=== PATIENT | female | born 1970 | race Caucasian/White ===

== ENCOUNTER → 2019-02-24 | Outpatient (CLI) | payer BC, OTHER ==
[~2019-02-24] VITALS: Ht 152.4 cm; Wt 94.8 kg
[~2019-02-24] MED LIST: ASA81BEC PO; CRESTOR40 MG PO; LASIX 40 MG TAB40 MG PO; LOSARTAN POTASS50 MG PO; NEURONTIN300 MG PO; NOVOLOG100 UNIT/1 SUBQ; TIZANIDINE HCL2 M1 PO; TOUJEO MAX300 UNIT/1 SUBQ; TRULICITY0.75 MG/0. SUBQ
--- NOTE | ~2019-02-24 | HPC ---
[facility] [address] [place] [address] PAIN MANAGEMENT CONSULTATION Name: JUAN GRANT Room #: REG ELLIOT Morales#: [id number] Admission: 02/24/19 Attend Phys: Bob Mart MD Discharge: Date of : 70 Report #: [id number] THIS REPORT FOR: //name// CC: Carl Alejandro The patient is a 48-year-old who was seen today at the request of [facility]. The consult was initiated by JODI Delacruz. The patient has 2 primary pain generators, one is in her neck and the other is in her low back. She is no stranger to pain clinics. She was seen originally at the pain clinic at [facility]. They only do injections there. She got several. She received 3 epidurals with no relief, but prior to that, they had also performed medial branch nerve blocks followed by extensive radiofrequency ablation. After receiving little improvement from them she was seen by JULIO C[facility]SAR Pain. Dr. Dori Bates performed a couple of shots as well, but there was no relief from those injections either. Those were for her low back. She then was placed on her medication management program and saw the nurse every 2 months. Medications were gradually weaned and she was allowed to take hydrocodone 5/325, 1-1/2 tablets a day. The prescription drug monitoring program shows that her last prescription written by Dr. Bates was on 11/05/2018 for 45 hydrocodone 5/325 tablets. She filled it on 11/30/2018. There have been no prescriptions filled since that time, she has gradually weaned herself off of opioids in total. She said that taking some small amounts of pain medicine did not provide relief at all. Today, her pain is a 5-6, on an average day it is an 8 on a severe day. She says the pain is mostly in her upper neck, radiating down her right arm and into her right wrist. This is the pain that has not responded to injections. Pain is worse when she is lying on her arm and she has used some ice to benefit. Because of her chronic pain and her history of heart disease, which will be described below, she is no longer works and is unable to work around the house. She currently is taking medications only as a way of managing her pain. She is not currently doing active physical therapy, but has seen a physical therapist in the past, who basically provided tactile therapy and massage. MEDICATIONS: Toujeo, NovoLog, Trulicity, Lasix, Losartan, rosuvastatin, aspirin. ALLERGIES: None. PAST MEDICAL HISTORY: Remarkable for prior myocardial infarctions, open heart surgery for bypass in 2011. She tearfully tells me that 2 parts of her heart are "." She follows with Dr. Cartagena. She describes congestive heart failure with an EF of 35%. She is not on medication that I can see right now and does [address] [address] PAIN MANAGEMENT CONSULTATION Name: JUAN GRANT Room #: REG ELLIOT Morales#: [id number] Admission: 02/24/19 Attend Phys: Bob Mart MD Discharge: Date of : 70 Report #: [id number] not have edema. She has a history of diabetes, hypertension and arthritis. SOCIAL HISTORY: She has not worked since 2011 and is receiving disability income. She is . She has a 10-year-old and lives in [place], [place] now near the [facility]. Impact pain scores are high, particularly for mood 10/30, normal work 11/30, sleep /10 and enjoyment of life /. Her total functional score is 52/70 suggesting dramatic impact of her pain on her psychosocial activities. REVIEW OF SYSTEMS: Positive for decreased appetite, weakness, shortness of breath, dyspnea on exertion, loss of appetite, numbness and tingling into the right arm, memory loss, confusion. PHYSICAL EXAMINATION: GENERAL: She cried 2-3 times during her visit while I was taking her history. VITAL SIGNS: Blood pressure is 178/108, heart rate 110, respirations 18, O2 sat 97. She is 5 feet tall, 209 pounds. Her BMI is 40.8. She moves independently from sitting to standing position. Her gait is antalgic. HEENT: Normal. Pupils are equal, round, react to light. EOMs are intact. Mucous membranes are moist. NECK: Range of motion reveals pain in the neck with neck extension. She has pretty good range of motion in flexion, rotation and lateral tilt. Pain radiates into her right arm with neck extension. CHEST: Clear. CARDIAC: Rhythm is rapid with a slight murmur appreciated at the left sternal border. ABDOMEN: Obese. MUSCULOSKELETAL: Examination of the low back reveals tenderness across the lumbosacral segment. Bilateral straight leg raising discomfort. There is no peripheral edema. Pulses are full. Deep tendon reflexes are 2+ knees and ankles. Sensation is normal. X-RAYS: None. IMPRESSION: 1. Chronic intractable pain. She has neck pain with cervical radicular symptoms. This has been poorly responsive to prior injections. 2. Low back pain with radiculopathy. 3. Depression. She cried throughout my visit today. She is relatively pessimistic and very poorly functional. 4. Insomnia. 5. History of coronary artery disease, status post coronary artery bypass graft in 2011. 6. Disability syndrome. [facility] [address] [place] [address] PAIN MANAGEMENT CONSULTATION Name: JUAN GRANT FRANSISCO Room #: REG CLKarina Olga.#: [id number] Admission: 02/24/19 Attend Phys: Bob Mart MD Discharge: Date of : 70 Report #: [id number] RECOMMENDATIONS: Supportive of her tapering off of her opioids at this time. I have recommended Cymbalta, which may be helpful for both depression and pain. I have given her 30 mg tablets and 30 total tablets with 2 refills. We will see her back in the pain clinic in 3 months. I would not be against trying a cervical epidural if we had an MRI to review. This might be helpful for at least one component of her pain in the cervical radicular pain. Total time spent 45 minutes. By: [id number] Bob Mart MD /nt
[2019-02-24 13:40] VITALS: BP 178/108
--- NOTE | 2019-02-24 13:48 | NUR ---
Pain Clinic Assessment: 1. History of Osteoarthritis: NECK History of Rheumatoid Arthritis: Not Applicable 2. Height: 5 ft. 0 in. 152.4 cm. Weight: 209.0 lb. 66 oz. 94.802 kg. Patient's BMI: 40.8 3. Vital Signs: BP: 178/108 Pulse: 110 Resp: 18 Temp: 02 Sat: 97 ECG Mon: 4. Pain Intensity: 7 5. Fall Risk: Dizziness: N Needs help standing or walking: N Fallen in the last 3 months: N Fall risk comments: 6. Patient on Blood Thinner: None 7. History of Hypertension: Y 8. Opioid Therapy greater than 6 weeks: N Opiate Contract Signed: 9. Risk Assessment Tool Provided: LOW-1 10. Functional Assessment Tool: / 11. Recreational Drug Use: Never Drug Type: Tobacco Use: Former Smoker Tobacco Type: Amount or Packs/day: How Many Years: Alcohol Use: No Frequency: Quant:
== END ==
LOC: PAIN 06:53
DX: M54.16 Radiculopathy, lumbar region (principal); F32.9 Major depressive disorder, single episode, unspecified; G47.00 Insomnia, unspecified; I25.10 Atherosclerotic heart disease of native coronary artery without angina pectoris; I25.2 Old myocardial infarction; Z79.4 Long term (current) use of insulin; Z79.899 Other long term (current) drug therapy

== ENCOUNTER → 2019-04-28 | Outpatient (CLI) | payer BC, OTHER ==
[~2019-04-28] VITALS: Ht 152.4 cm; Wt 94.8 kg
--- NOTE | ~2019-04-28 | HPC ---
[facility] [place] [address] PAIN MANAGEMENT CONSULTATION Name: JUAN GRANT Room #: REG ELLIOT Espinoza.#: [id number] Admission: 04/28/19 Attend Phys: Bob Mart MD Discharge: Date of : 70 Report #: [id number] THIS REPORT FOR: //name// CC: Carl Aldridge DO Bob Mart DATE OF SERVICE: 04/28/2019 SUBJECTIVE: The patient is here today with her . She tells me a scary story about a recent procedure. Apparently, she went to the hospital on 04/17/2019 because she was feeling nauseated. In the Emergency Room, somehow one thing led to another and they noticed a cyst on the back of her neck. She had been complaining of pain in her neck previously. Apparently, she was taken to the operating room or to a procedure room for resection of this cystic mass. She was placed in the prone position and well under some form of anesthesia, arrested twice. CPR was performed. She was intubated and taken to the Intensive Care Unit where she remained for a couple of nights. She was then extubated, stabilized and discharged from the hospital on 04/23/2019. She has a history of coronary artery disease and congestive heart failure. At her last visit, I suggested Cymbalta 30 mg once daily. She cried throughout her first visit in my clinic and admitted to depression as well as chronic pain. She apparently discontinued it because she said she had no appetite. I did check her weight since she has not changed weight at all from the first visit on 02/24/2019 to today. Her biggest complaint today is of open wounds, which are being treated by wound management. It seems to me the story she has told me about the arrest during anesthesia, they may have not completed the procedure. Typically a resection of the cyst would include undermining of skin and closing the wound. She is now being packed and allowed to heal with intention from the outside. Again, I do not have her outside records. PHYSICAL EXAMINATION: Blood pressure 133/80, heart rate 89, respirations 16. Her affect is improved over her initial visit. She did not cry throughout her visit. Pain intensity was 4/10. Examination of the neck reveals open wounds, which are packed. The dressings are filthy and coming off, so we redressed the wound in our clinic. The neck is tender. She has diffuse myofascial pains in her right shoulder, right arm, but is not radicular and does not radiate. IMPRESSION: 1. Chronic cervicalgia. 2. Status post cervical superficial cystectomy with cardiac arrest during the procedure. [address] [address] PAIN MANAGEMENT CONSULTATION Name: JUAN GRANT FRANSISCO Room #: REG ELLIOT Morales#: [id number] Admission: 04/28/19 Attend Phys: Bob Mart MD Discharge: Date of : 70 Report #: [id number] 3. Insulin-dependent diabetic. 4. History of coronary artery disease, status post bypass graft in 2012 with congestive heart failure. RECOMMENDATIONS: Continue on Tylenol at this time. No injections are indicated while she has open wounds. Her cervical radicular symptoms have abated. I would not perform a cervical epidural injection on this patient, especially with her history of cardiac arrest for a simple procedure. By: [id number] Bob Mart MD /nt
[2019-04-28 11:28] VITALS: BP 133/80
--- NOTE | 2019-04-28 11:36 | NUR ---
Pain Clinic Assessment: 1. History of Osteoarthritis: NECK History of Rheumatoid Arthritis: Not Applicable 2. Height: 5 ft. 0 in. 152.4 cm. Weight: 209.0 lb. oz. 94.802 kg. Patient's BMI: 40.8 3. Vital Signs: BP: 133/80 Pulse: 89 Resp: 16 Temp: 02 Sat: 100 ECG Mon: 4. Pain Intensity: 4 5. Fall Risk: Dizziness: N Needs help standing or walking: N Fallen in the last 3 months: N Fall risk comments: 6. Patient on Blood Thinner: None 7. History of Hypertension: Y 8. Opioid Therapy greater than 6 weeks: N Opiate Contract Signed: 9. Risk Assessment Tool Provided: LOW-1 10. Functional Assessment Tool: / 11. Recreational Drug Use: Never Drug Type: Tobacco Use: Former Smoker Tobacco Type: Amount or Packs/day: How Many Years: Alcohol Use: No Frequency: Quant:
== END ==
LOC: PAIN 06:54
DX: M54.2 Cervicalgia (principal); E11.9 Type 2 diabetes mellitus without complications; I25.10 Atherosclerotic heart disease of native coronary artery without angina pectoris

== ENCOUNTER → 2019-06-16 | Outpatient (CLI) | payer BC, OTHER | LOC: SJCVC 09:12 | DX: I25.10 Atherosclerotic heart disease of native coronary artery without angina pectoris (principal) ==

== ENCOUNTER 2019-08-23 11:55 | Emergency (ER) | payer OTHER, BC ==
[~2019-08-23] VITALS: Ht 152.4 cm; Wt 85.7 kg
[2019-08-23 12:00] VITALS: BP 150/92
[2019-08-23] MEDS ORDERED: CYCLOBENZAPRINE5 MG PO ×2 (12:31→12:44)
[2019-08-23] MEDS ORDERED: NORCO 10-325 T1 EACH PO ×2 (12:31→12:44)
== END 2019-08-23 12:45 | disposition home or self-care (01) ==
LOC: ER 11:55
DX: M54.2 Cervicalgia (principal); M54.9 Dorsalgia, unspecified; M79.18 Myalgia, other site; F17.210 Nicotine dependence, cigarettes, uncomplicated; Z79.899 Other long term (current) drug therapy; Z79.82 Long term (current) use of aspirin; Z90.710 Acquired absence of both cervix and uterus; Z98.890 Other specified postprocedural states

== ENCOUNTER 2019-09-10 19:23 | Emergency (ER) | payer OTHER, BC ==
[~2019-09-10] VITALS: Ht 152.4 cm; Wt 86.2 kg
[~2019-09-10 19:23] MED LIST changes: +CYCLOBENZAPRINE5 MG PO; +NORCO 10-325 T1 EACH PO
[2019-09-10 20:40] LABS: ABSOLUTE NEUTROPHILS 4.9 thou/uL (1.4-8.2); BASOPHILS 0.5 % (0.0-2.0); EOSINOPHILS 0.6 % (0.0-3.0); HEMATOCRIT 39.7 % (37.0-47.0); HEMOGLOBIN 12.9 gm/dL (12.0-15.0); LYMPHOCYTES 16.4 % (24.0-44.0); MCH 29.4 pg (26.0-34.0); MCHC 32.6 g/dL (28.0-37.0); MONOCYTES 5.4 % (1.0-8.0); PLATELET COUNT 214 thou/uL (150-400); POLYS 77.1 % (36.0-66.0); RBC 4.41 mil/uL (4.20-5.00); RDW 16.3 % (10.5-14.5); WBC 6.3 thou/uL (4.0-11.0)
[2019-09-10 20:45] LABS: ANION GAP 8 mmol/L (7-16); BUN 11 mg/dL (7-18); CALCIUM 8.7 mg/dL (8.5-10.1); CHLORIDE 100 mmol/L (98-107); CO2 31 mmol/L (21-32); CREATININE 1.1 mg/dL (0.6-1.0); GLUCOSE 224 mg/dL (74-106); POTASSIUM 3.3 mmol/L (3.5-5.1); SODIUM 139 mmol/L (136-145)
[2019-09-10 20:53] LABS: MAGNESIUM 1.7 mg/dL (1.8-2.4); TROPONIN-I <0.06 ng/mL (<0.06)
[2019-09-10 21:44] VITALS: BP 133/55
--- NOTE | 2019-09-11 08:12 | EKG ---
[facility] [place] [address] ELECTROCARDIOGRAM REPORT Name: JUAN GRANT Room #: DEP [facility]..#: [id number] Admission: 09/10/19 Attend Phys: Discharge: 09/10/19 Date of : 70 Report #: [id number] THIS REPORT FOR: cc: Carl Aldridge James A. 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
== END 2019-09-10 21:47 | disposition home or self-care (01) ==
LOC: ER 19:23
PROVIDERS: Emergency Medicine
DX: R06.00 Dyspnea, unspecified (principal); R06.02 Shortness of breath; E11.9 Type 2 diabetes mellitus without complications; I50.9 Heart failure, unspecified; Z95.1 Presence of aortocoronary bypass graft; Z79.4 Long term (current) use of insulin; Z79.82 Long term (current) use of aspirin; Z79.899 Other long term (current) drug therapy; Z87.891 Personal history of nicotine dependence; Z90.710 Acquired absence of both cervix and uterus; Z98.890 Other specified postprocedural states

== ENCOUNTER → 2019-09-23 | Outpatient (CLI) | payer OTHER, BC ==
[~2019-09-23] MED LIST changes: +CARVEDILOL12.5 MG PO; +CARVEDILOL25 MG PO; +CEFACLOR250 MG PO; +COZAAR 25 MG TA25 M1 PO; +DEMADEX20 MG PO; +DOXYCYCLINE HYC50 MG PO; +HUMULIN R100 UNIT/1 SUBQ; +HYDROCODON-ACE1 EAC5 PO; +JARDIANCE10 MG PO; +KLOR-CON 1010 MEQ PO; +NEURONTIN 300M300 M2 PO; +NITROGLYCERIN0.4 MG SUBLING; +NOVOLIN R100 UNIT/2 SUBQ; +SPIRONOLACTONE25 M1 PO; +TIZANIDINE HCL 22 M1 PO; +TIZANIDINE HCL4 M1 PO; +TOUJEO SOL300 UNIT/1 SUBQ; +TRAMADOL 50 MG50 MG PO; +TRAZODONE HCL50 MG PO; +ULTRAM 50MG TAB50 MG PO; +VICTOZA0.6 MG/0.1 SUBQ; +VITAMIN D3250 MC2 PO; +ZANAFLEX2 M1 PO; +ZETIA10 MG PO
== END ==
LOC: SJCVCIMAG 08:55
PROVIDERS: ATTEND Internal Medicine Cardiovascular Disease
DX: R94.31 Abnormal electrocardiogram [ECG] [EKG] (principal); I25.10 Atherosclerotic heart disease of native coronary artery without angina pectoris; E11.9 Type 2 diabetes mellitus without complications; I42.9 Cardiomyopathy, unspecified; I11.0 Hypertensive heart disease with heart failure; I50.9 Heart failure, unspecified; E66.9 Obesity, unspecified; G89.29 Other chronic pain; Z95.1 Presence of aortocoronary bypass graft; Z90.710 Acquired absence of both cervix and uterus; Z79.899 Other long term (current) drug therapy; Z87.891 Personal history of nicotine dependence

== ENCOUNTER 2019-09-25 12:03 | Inpatient (IN) | payer OTHER, BC | END 2019-09-28 12:49 | disposition home or self-care (01) | DRG 637 | LOC: ER 12:03 → EROBS 13:46 → ICU 19:45 → 2N 09-26 22:28 | PROVIDERS: ADMIT Internal Medicine | DX: E11.65 Type 2 diabetes mellitus with hyperglycemia (principal); J96.20 Acute and chronic respiratory failure, unspecified whether with hypoxia or hypercapnia; I50.23 Acute on chronic systolic (congestive) heart failure; I42.9 Cardiomyopathy, unspecified; R79.89 Other specified abnormal findings of blood chemistry; I95.9 Hypotension, unspecified; I34.0 Nonrheumatic mitral (valve) insufficiency; I25.119 Atherosclerotic heart disease of native coronary artery with unspecified angina pectoris; I11.0 Hypertensive heart disease with heart failure; E78.5 Hyperlipidemia, unspecified; E83.51 Hypocalcemia; M54.9 Dorsalgia, unspecified; G89.29 Other chronic pain; I25.10 Atherosclerotic heart disease of native coronary artery without angina pectoris; E78.00 Pure hypercholesterolemia, unspecified; E87.6 Hypokalemia; E83.42 Hypomagnesemia; Z90.710 Acquired absence of both cervix and uterus; Z95.1 Presence of aortocoronary bypass graft; Z98.1 Arthrodesis status; Z87.891 Personal history of nicotine dependence; Z79.82 Long term (current) use of aspirin; Z79.4 Long term (current) use of insulin; Z79.899 Other long term (current) drug therapy ==

== ENCOUNTER 2019-10-04 23:55 | Inpatient (IN) | payer OTHER, BC ==
[~2019-10-04] VITALS: Ht 152.4 cm; Wt 88.5 kg
[~2019-10-04 23:55] MED LIST changes: -CARVEDILOL25 MG PO; -CEFACLOR250 MG PO; -DEMADEX20 MG PO; -DOXYCYCLINE HYC50 MG PO; -HUMULIN R100 UNIT/1 SUBQ; -HYDROCODON-ACE1 EAC5 PO; -KLOR-CON 1010 MEQ PO; -NEURONTIN 300M300 M2 PO; -NITROGLYCERIN0.4 MG SUBLING; -SPIRONOLACTONE25 M1 PO; -TIZANIDINE HCL 22 M1 PO; -TRAZODONE HCL50 MG PO; -ULTRAM 50MG TAB50 MG PO; -VITAMIN D3250 MC2 PO; -ZANAFLEX2 M1 PO; -ZETIA10 MG PO
[2019-10-05] VITALS (9 sets, daily range): BP systolic 102–143; BP diastolic 47–97
[2019-10-05 00:42] LABS: ABSOLUTE NEUTROPHILS 12.7 thou/uL (1.4-8.2); BASOPHILS 0.7 % (0.0-2.0); HEMATOCRIT 34.5 % (37.0-47.0); HEMOGLOBIN 11.4 gm/dL (12.0-15.0); LYMPHOCYTES 3.2 % (24.0-44.0); MCHC 33.1 g/dL (28.0-37.0); MCV 87.5 fL (80.0-100.0); MONOCYTES 8.3 % (1.0-8.0); PLATELET COUNT 304 thou/uL (150-400); POLYS 87.8 % (36.0-66.0); RBC 3.95 mil/uL (4.20-5.00); RDW 15.9 % (10.5-14.5); WBC 14.5 thou/uL (4.0-11.0)
[2019-10-05 00:48] LABS: ANION GAP 11 mmol/L (7-16); BUN 17 mg/dL (7-18); CALCIUM 8.8 mg/dL (8.5-10.1); CHLORIDE 92 mmol/L (98-107); CO2 26 mmol/L (21-32); CREATININE 1.3 mg/dL (0.6-1.0); GLUCOSE 296 mg/dL (74-106); POTASSIUM 4.1 mmol/L (3.5-5.1); SODIUM 129 mmol/L (136-145)
[2019-10-05 00:58] LABS: ALBUMIN 2.7 g/dL (3.4-5.0); SGOT 33 U/L (15-37); SGPT 24 U/L (30-65); TOTAL BILIRUBIN 1.6 mg/dL (0.2-1.0); TOTAL PROTEIN 7.5 g/dL (6.4-8.2); TROPONIN-I <0.06 ng/mL (<0.06)
[2019-10-05 03:27] LABS: URINE BILIRUBIN 1+ (Negative); URINE BLOOD 2+ (Negative); URINE CLARITY CLEAR; URINE COLOR YELLOW; URINE GLUCOSE-RANDOM* 2+ (Negative); URINE KETONES 1+ (Negative); URINE LEUKOCYTES-REFLEX NEGATIVE (Negative); URINE NITRITE-REFLEX NEGATIVE (Negative); URINE PROTEIN (DIPSTICK) 3+ (Negative); URINE SPECIFIC GRAVITY >= 1.030 (1.005-1.035)
[2019-10-05 03:28] LABS: ICTOTEST (BILI CONFIRMATORY) Positive (Negative)
[2019-10-05 03:29] LABS: AMORPHOUS URATES Many /LPF (None Seen); BACTERIA-REFLEX 1-9 Few /HPF (None Seen); FINE GRANULAR CASTS 4-10 Moderate /LPF (None Seen); HYALINE CASTS 0-3 Few /LPF (None Seen); MUCUS 4-6 Moderate strn/LPF (None Seen); SQUAMOUS 0-3 Few /LPF (0-3); URINE RBC 3-10 Few /HPF (0-2); URINE WBC-REFLEX None Seen /HPF (0-5)
[2019-10-05 03:30] LABS: URIC ACID CRYSTALS 0-3 Few /LPF (None Seen)
--- NOTE | 2019-10-05 07:07 | NUR ---
PT ADMITTED FROM ER TO RM 352. PT IS ALERT AND ORIENTEDX4 WITH PERIODS OF FORGETFULNESS. VSS. STILL RUNNING TEMP. HRR. LUNGS ARE DIMINISHED. LABORED WITH MOVEMENT. SATS WNL PRESENTLY.INSTRUCTED ON FALL PRECAUTIONS, BED ALARM IS ON. ORIENTED PT TO ROOM. C/O BACK PAIN . REFUSED TRAMADOL.
--- NOTE | 2019-10-05 08:48 | EKG ---
[facility] [place] [address] ELECTROCARDIOGRAM REPORT Name: LAVERNE GRANTJORIE FRANSISCO Room #: 352-P ADM IN M.R.#: [id number] Admission: 10/05/19 Attend Phys: Kaity Foley MD Discharge: Date of : 70 Report #: [id number] THIS REPORT FOR: cc: Carl Aldridge James A. 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 : 1970 Requested By: Dagoberto Edmondson Order Number: [id number] MD: Darnell Cartagena Measurements Intervals [place] Rate: 106 P: 64 ID: [id number] QRS: 28 QRSD: 114 T: 224 QT: 322 QTc: 428 Interpretive Statements Sinus tachycardia Consider right atrial enlargement LVH with secondary repolarization abnormality Nonspecific ST segment abnormalities Compared to ECG 09/25/2019 12:54:15 Sinus rhythm no longer present Possible ischemia no longer present Electronically Signed On 10-05-2019 8:47:22 CDT by Darnell Cartagena [email or web address] <ELECTRONICALLY SIGNED> By: Darnell Cartagena MD 10/05/19 0847 [id number] Darnell Cartagena MD /EPI
--- NOTE | 2019-10-05 18:33 | NUR ---
ASSUMED PATIENT CARE AT 0700. A/O X4. RESTLESS. VSS. SOB WITH EXERTION. COVID NEHATIVE. SLOWLY TOWARDS POC GOALS.
[2019-10-06] VITALS (8 sets, daily range): BP systolic 78–95; BP diastolic 45–59
--- NOTE | 2019-10-06 00:29 | NUR ---
Pt progressing slowly towards d/c goals. She continues to run temperatures Treating with abx and tylenol prn. Pt stated she feels a little better today. She was confused and restless at start of shift. She kept wanting to dangle at side of bed but set off bed alarm several times. Reeducated about fall precautions. Bed alarm is on. Medicated with tylenol for temp and tizanidine for muscle spasm pain. Pt is sleeping presently. Will continue to monitor pt for changes.
--- NOTE | 2019-10-06 04:47 | NUR ---
NOTIFIED ЮЛИЯ QUINTERO ELECTRICIAN CHIEF OF PT'S BP 91/48, 92/51. TEMP 103. TYKLENOL GIVEN. PT ON ABX. ELECTRICIAN CHIEF WILL REVIEW PT'S MEDS. NO ORDERS GIVEN FOR NOW. PT VOIDED A60 ML DARK CLEAR TEA COLORED URINE.
[2019-10-06 05:45] LABS: ABSOLUTE NEUTROPHILS 9.5 thou/uL (1.4-8.2); BASOPHILS 0.5 % (0.0-2.0); HEMATOCRIT 27.3 % (37.0-47.0); LYMPHOCYTES 3.3 % (24.0-44.0); MCH 29.4 pg (26.0-34.0); MCHC 33.2 g/dL (28.0-37.0); MCV 88.3 fL (80.0-100.0); MONOCYTES 6.9 % (1.0-8.0); POLYS 89.3 % (36.0-66.0); RBC 3.09 mil/uL (4.20-5.00); RDW 16.2 % (10.5-14.5); WBC 10.6 thou/uL (4.0-11.0)
[2019-10-06 05:50] LABS: HEMOGLOBIN 9.1 gm/dL (12.0-15.0); PLATELET COUNT 208 thou/uL (150-400)
[2019-10-06 05:53] LABS: CALCIUM 8.2 mg/dL (8.5-10.1); CREATININE 1.7 mg/dL (0.6-1.0); MAGNESIUM 1.7 mg/dL (1.8-2.4); POTASSIUM 3.8 mmol/L (3.5-5.1)
--- NOTE | 2019-10-06 16:24 | NUR ---
ASSESSMENT:CM REVIEWED CHART AND SPOKE WITH PATIENT. PT WAS ADMITTED WITH SEPSIS. PT IS BEING RULE OUT FOR COVID AND HAS HAD TWO NEGATIVE RESULTS. PT REPORTS THE SHE LIVES IN A RANCH STYLE HOME WITH HER , CHILDREN, AND GRANDSON. PT REPORTS SHE HAS NO STEPS TO ENTER OR ONCE INSIDE. PT REPORTS BEING FULLY INDEPENDENT WITH ADLS AND AMBULATION. PT HAS HX OF DIABETES AND REPORTS HAVING INSULIN AND GLUCOMETER AT HOME. PT REPORTS SHE HAS NOT HAD HH OR BEEN TO A SNF IN THE PAST. PT REPORTS HER PCP IS DR. SHIN. CM DISCUSSED ROLE. PT DOES NOT ANTICIPATE HAVING ANY NEEDS. PT WAS JUST PLACED ON 2L OF OXYGEN AND DOES NOT HAVE OXYGEN AT HOME. CM WILL CONTINUE TO FOLLOW TO ASSIST NEEDED.
--- NOTE | 2019-10-06 18:32 | NUR ---
PT'S FIRST COVID WAS NEGATIVE FROM 10/05/19 TEST , BECAUSE PT HAS SOB AND FEVER, PT HAD SECOND COVID TEST AT 9AM, RESULT WAS NEGATIVE, RN HAS REPORTED RESULT TO AND ID ,PT STLL HAS FEVER AND SOB, SO WE CONTINUING ISOLATION AND KEEP EYE ON PT.
--- NOTE | 2019-10-06 18:37 | NUR ---
PT IS A&OX2 ( PERSON AND PLACE ), BUT PT IS FORGETFUL, RN HAS REPORT TO DR ABOUT PT'S SOB, FEVER AND ABNORMAL LAB RESULT , PT STARTS 02 2L/MIN/NC, NEW IV ABX , AND BRETHING TREATMENT, PT NEEDS HELP TO USE BSC , PT IS RELAXING NOW.
--- NOTE | 2019-10-06 23:11 | NUR ---
PT PROGRESSING SLOWLY TOWARDS D/C GOALS. PT IS MORE ALERT TONIGHT THAN YESTERDAY FAR ANSWERING QUESTIONS APPROPRIATELY. SHE IS LESS RESTLESS IN THE BED. TEMP 100. BP MODERATELY LOW . IV FLUIDS ARE OFF ORDERED. LUNGS SOUND MAILY CLEAR BUT SLIGHTLY DIMINISHED ON RLL. 3LNC 100%% SAT. RESP TX PER RT. C/O BACK PAIN 09/30. NOTIFIED APPLIANCE PARTS COUNTER CLERK ЮЛИЯ QUINTERO. HYDROCODONEGIVEN ORDERED SINCE IT WAS NOT TIME YET TO GIVE MUSCLE RELAXER OR TYLENOL. PT IS SLEEPING QUIETLY PRSENTLY. WILL CONTINUE TO MONITOR PT FOR CHANGES.
[2019-10-07] VITALS (10 sets, daily range): BP systolic 97–168; BP diastolic 53–80
[2019-10-07 05:47] LABS: ABSOLUTE NEUTROPHILS 7.8 thou/uL (1.4-8.2); BASOPHILS 0.3 % (0.0-2.0); EOSINOPHILS 0.4 % (0.0-3.0); HEMOGLOBIN 9.8 gm/dL (12.0-15.0); LYMPHOCYTES 5.5 % (24.0-44.0); MCH 28.7 pg (26.0-34.0); MCHC 32.6 g/dL (28.0-37.0); MCV 88.2 fL (80.0-100.0); MONOCYTES 6.3 % (1.0-8.0); PLATELET COUNT 222 thou/uL (150-400); POLYS 87.5 % (36.0-66.0); WBC 8.9 thou/uL (4.0-11.0)
[2019-10-07 05:56] LABS: CALCIUM 8.5 mg/dL (8.5-10.1); MAGNESIUM 2.6 mg/dL (1.8-2.4); POTASSIUM 3.9 mmol/L (3.5-5.1)
--- NOTE | 2019-10-07 06:34 | NUR ---
Pt is resting quietly after hydrocodone given for back pain and cough medicine given. Pt has had low grade temps tonight. Pt voided cloudy nina colored urine 350 out total for shift. SR with BBB on the monitor.
--- NOTE | 2019-10-07 10:19 | NUR ---
PT'S SECOND COVID WAS NEGATIVE FROM 09/05/19 TEST, WE CPNTINUE TO MONITOR , PT DOES NOT HAVE FEVER LAST NIGHT , PT'S COVID ISOLATION HAS DC PER ORDER.
--- NOTE | 2019-10-07 13:07 | NUR ---
SW reviewed chart and spoke with nursing and attending physician. Pt is progressing towards goals for discharge. Pt's second COVID-19 test is negative. Pt was febrile yesterday and is currently on IV abx and O2. Psych consulted due to AMS. Plan is for pt to discharge home when medically stable. Will need rest/exercise oximetry prior to discharge to determine if pt needs home O2. SW is following to assist as needed with discharge planning.
--- NOTE | 2019-10-07 14:49 | NUR ---
PT IS A&OX3, PT IS CONTINUING IV ABX, RN HAS REPORTED TO DR ABOUT PT'S ABNORMAL LAB RESULTS AND 700ML URINE IN 24HR, NEW ORDER ,PT STARTS NS @ 100ML/HR ( TOTAL 1000ML), PT IS ON O2 1L/MIN/NC, PT HAS SOB WITH ACTIVITES, PT'S VS ARE ARE STABLE , PT DOES NOT HAVE PAIN AND FEVER BY THIS TIME.
--- NOTE | 2019-10-07 19:25 | NUR ---
pt is off o2 and stays at room air, pt 's o2sat keeps at 94-95% at resting. RN has reported to next shift to monitor o2sat.
--- NOTE | 2019-10-08 00:06 | NUR ---
ASSESSED AT START OF SHIFT PT A&OX4 FOR THIS NURSE. DENIES N/V. CLEAR LUNG SOUNDS AND 02 95-96% ON ROOM AIR. TRAZADONE GIVEN FOR SLEEP PER PT REQUEST AND HYDROCODONE GIVENX1 FOR BACK PAIN. CALL LIGHT IN REACH AND WILL CONT WITH POC TILL EOS.
[2019-10-08 04:52] VITALS: BP 147/78
[2019-10-08 06:44] LABS: CALCIUM 8.5 mg/dL (8.5-10.1); CREATININE 1.2 mg/dL (0.6-1.0); POTASSIUM 3.3 mmol/L (3.5-5.1)
[2019-10-08 07:48] VITALS: BP 142/74
[2019-10-08] MEDS ORDERED: DOXYCYCLINE HYC50 MG PO (08:28)
[2019-10-08] MEDS ORDERED: CEFACLOR250 MG PO (08:30)
[2019-10-08 08:47] VITALS: BP 142/74
[2019-10-08] MEDS ORDERED: NORCO 10-325 T1 EACH PO (09:50)
[2019-10-08 10:21] VITALS: BP 142/74
--- NOTE | 2019-10-08 10:24 | NUR ---
DISCHARGE NOTE: CHIP reviewed chart and spoke with nursing and attending physician. Pt is medically stable for discharge home today. Pt is on room air. Pt to discharge home today. Pt's family to provide transportation home. No discharge needs identified at this time, but is available to assist should needs arise.
--- NOTE | 2019-10-17 15:17 | HC ---
[facility] [place] [address] CONSULTATION Name: JUAN GRANT FRANSISCO Room #: 352-P [facility] IN M.R.#: [id number] Admission: 10/05/19 Attend Phys: Rey Causey MD Discharge: 10/08/19 Date of : 70 Report #: [id number] THIS REPORT FOR: cc: Carl Aldridge James A. DO Al-Absi, Ahmed I. MD ~ CC: Rey Aldridge REASON FOR CONSULTATION: Elevated creatinine. REASON FOR PRESENTATION: Difficulty finding words. HISTORY OF PRESENT ILLNESS: A 49-year-old with history of coronary artery disease, cardiomyopathy with ejection fraction of around 35%. She is also known to have diabetes mellitus with uncontrolled blood sugar. She presented with confusion and inability to find her words. She was admitted for further evaluation and management. Blood pressure was on the low side when she presented and dropped to 90/48. She had some leukocytosis. Drop in her blood pressure has caused a rise in the creatinine with the creatinine peaking at 2.0; however, this had resolved and is down to 1.2. I was consulted to manage her acute kidney injury. From the renal perspective, she tells me that she is not aware of any previous kidney problems and she did have creatinine values anywhere from 0.8-1.0. She has been diabetic for over the last couple of years. She follows with Luis Carlos. Her most recent hemoglobin A1c was 11.9. PAST MEDICAL HISTORY: 1. Diabetes mellitus, uncontrolled. 2. Hypertension. 3. Coronary artery disease. 4. Hyperlipidemia. 5. Cardiomyopathy with ejection fractions of around 35%. PAST SURGICAL HISTORY: 1. CABG. 2. Mitral valve annuloplasty. 3. Basal cell carcinoma excision. 4. Hysterectomy. FAMILY HISTORY: Diabetes mellitus runs in the family. SOCIAL HISTORY: Former smoker. Denies drug or alcohol abuse. ALLERGIES: None. REVIEW OF SYSTEMS: GENERAL: No fever or chills. [facility] [address] [place] [address] CONSULTATION Name: LAVERNE GRANTJORIE [facility] Room #: [facility] IN .R.#: [id number] Admission: 10/05/19 Attend Phys: Rey Causey MD Discharge: 10/08/19 Date of : 70 Report #: [id number] CARDIOVASCULAR: No chest pain or palpitation. PULMONARY: Significant for shortness of breath. GASTROINTESTINAL: No nausea or vomiting. GENITOURINARY: No frequency, no urgency. MUSCULOSKELETAL: Occasional myalgias. NEUROLOGICAL: As per the history of present illness. MEDICATIONS: At home includes: 1. Carvedilol. 2. Losartan. 3. Aspirin. 4. Tramadol. 5. Victoza. 6. Jardiance. 7. Tramadol. 8. Tizanidine. PHYSICAL EXAMINATION: GENERAL: She is alert, oriented. VITAL SIGNS: Temperature 37.2, pulse rate 95, respiratory rate 16, blood pressure 147/78. HEAD AND NECK: No jugular venous distention. CHEST: No crackles. CARDIOVASCULAR: Regular with no rub detected. ABDOMEN: Soft, nontender with no hepatosplenomegaly. EXTREMITIES: Lower extremities, no edema. NEUROLOGIC: She is alert, oriented with no deficit. Cranial nerves are intact. Power and sensations are intact. LABORATORY DATA: On arrival showed a white blood cell count of 14.5, which is down to 8.9. Sodium is 130, potassium 3.3, BUN is 24, creatinine is 1.2. ASSESSMENT AND IMPRESSION: 1. Acute kidney injury due to hypotension. 2. Pneumonitis. 3. Hypotension. 4. Diabetes mellitus. 5. Hyponatremia. 6. Cardiomyopathy. PLAN: 1. Her acute kidney injury is well explained by the hypotension. This has resolved. She received appropriate amount of IV fluids. This has been discontinued. Continue to watch blood pressure. 2. Continue to watch urine output and electrolytes. [address] [address] CONSULTATION Name: JUAN GRANT [facility] Room #: 352-P [facility] IN M.R.#: [id number] Admission: 10/05/19 Attend Phys: Rey Causey MD Discharge: 10/08/19 Date of : 70 Report #: [id number] 3. Workup for her confusion and mental status changes as per the primary team. 4. Appropriate antibiotic therapy as per the ID team. <ELECTRONICALLY SIGNED> By: Amanda Mabry MD 10/17/19 1517 [id number] Amanda Mabry MD /grey
== END 2019-10-08 10:10 | disposition home or self-care (01) | DRG 871 ==
LOC: ER 23:55 → EROBS 10-05 03:52 → 3W 10-05 03:52 → EROBS 10-05 05:06 → 3W 10-05 05:18
PROVIDERS: Emergency Medicine; Internal Medicine Infectious Disease; Nurse Practitioner Family; ADMIT Hospitalist; ATTEND Hospitalist
PROC: 5A09357 Assistance with Respiratory Ventilation, Less than 24 Consecutive Hours, Continuous Positive Airway Pressure (ICD-10-PCS; principal; 2019-10-06)
DX: A41.9 Sepsis, unspecified organism (principal); J18.9 Pneumonia, unspecified organism; G92 Toxic encephalopathy; N17.9 Acute kidney failure, unspecified; I42.9 Cardiomyopathy, unspecified; E87.1 Hypo-osmolality and hyponatremia; E11.65 Type 2 diabetes mellitus with hyperglycemia; I50.9 Heart failure, unspecified; I25.10 Atherosclerotic heart disease of native coronary artery without angina pectoris; E78.5 Hyperlipidemia, unspecified; I95.9 Hypotension, unspecified; G89.29 Other chronic pain; M54.9 Dorsalgia, unspecified; I11.0 Hypertensive heart disease with heart failure; Z20.828 Contact with and (suspected) exposure to other viral communicable diseases; E83.42 Hypomagnesemia; R41.0 Disorientation, unspecified; E87.6 Hypokalemia; Z03.818 Encounter for observation for suspected exposure to other biological agents ruled out; Z90.710 Acquired absence of both cervix and uterus; Z95.1 Presence of aortocoronary bypass graft; Z87.891 Personal history of nicotine dependence; Z83.3 Family history of diabetes mellitus; Z82.49 Family history of ischemic heart disease and other diseases of the circulatory system; Z79.82 Long term (current) use of aspirin; Z79.899 Other long term (current) drug therapy
CPT/HCPCS: 10080; 10879

== ENCOUNTER → 2019-10-27 | Outpatient (CLI) | payer OTHER, BC ==
[~2019-10-27] MED LIST changes: +CEFACLOR250 MG PO; +DOXYCYCLINE HYC50 MG PO
== END ==
LOC: SJCVC 13:40
PROVIDERS: ATTEND Internal Medicine Cardiovascular Disease
DX: R94.31 Abnormal electrocardiogram [ECG] [EKG] (principal); I25.810 Atherosclerosis of coronary artery bypass graft(s) without angina pectoris; I10 Essential (primary) hypertension; E78.00 Pure hypercholesterolemia, unspecified; E11.9 Type 2 diabetes mellitus without complications; R60.9 Edema, unspecified; E78.5 Hyperlipidemia, unspecified; E66.9 Obesity, unspecified; Z95.1 Presence of aortocoronary bypass graft; Z82.49 Family history of ischemic heart disease and other diseases of the circulatory system; Z86.79 Personal history of other diseases of the circulatory system; Z79.82 Long term (current) use of aspirin; Z79.899 Other long term (current) drug therapy; Z87.891 Personal history of nicotine dependence

== ENCOUNTER → 2019-11-04 | Outpatient (CLI) | payer OTHER, BC | LOC: SJCVC 15:15 | DX: R94.31 Abnormal electrocardiogram [ECG] [EKG] (principal); I25.5 Ischemic cardiomyopathy; I25.10 Atherosclerotic heart disease of native coronary artery without angina pectoris; I10 Essential (primary) hypertension; E11.628 Type 2 diabetes mellitus with other skin complications; Z68.39 Body mass index [BMI] 39.0-39.9, adult; Z79.899 Other long term (current) drug therapy; Z87.891 Personal history of nicotine dependence ==

== ENCOUNTER → 2019-12-01 | Outpatient (CLI) | payer OTHER, BC ==
[~2019-12-01] VITALS: Ht 152.4 cm; Wt 88.3 kg
[~2019-12-01] MED LIST changes: +HUMULIN R100 UNIT/1 SUBQ; +HYDROCODON-ACE1 EAC5 PO
--- NOTE | ~2019-12-01 | HPC ---
[facility] [place] [address] PAIN MANAGEMENT CONSULTATION Name: JUAN GRANT FRANSISCO Room #: REG MANKarina Morales#: [id number] Admission: 12/01/19 Attend Phys: Bob Mart MD Discharge: Date of : 70 Report #: [id number] THIS REPORT FOR: cc: Jessica Bradley DNP, Mary E. DNP Morgan, Richard L. MD ~ CC: Jessica Mart DATE OF SERVICE: 12/01/2019 The patient is here today with chronic pain. She was in tears a couple of times during her visit because of her significant arthritic pain. Most of her pain is skeletal related to spondylosis. She has cervicalgia as well as some low back pain. I had seen her in the past and initiated Cymbalta. She has continued on it, but is not currently noticing significant pain relief benefits. She has taken nonsteroidal anti-inflammatory drugs in the past, but must be cautious. She is on an aspirin and has significant coronary artery disease, status post bypass surgery. She also has an mitral valve replacement. We discussed her chronic issues. She is treated for hypertension, cardiac arrhythmias and is reportedly scheduled to have an implant of a pacemaker defibrillator. She has been hospitalized more than once over the last 6 months for fluid overload and symptoms of congestive heart failure twice at [facility] and once at [facility]. After diuresis, she has returned home. I do not have her records, but that is what I have gleaned from her report. Her coronary artery disease dates back many years. In 2011, she underwent CABG x 2 and mitral valve replacement by Dr. Reza at [facility]. She continues to report some mitral regurgitation. Pain is generally around a 7/10. She has generalized arthralgias, but complains mostly of her neck and low back. She denies radicular symptoms. Daily activities include house cleaning and laundry. She has been staying at home and sheltering a place due to COVID concerns. Her health issues providing an extra urgency and desire to stay out of the public. She has used tramadol, provided 1-2 tablets a day by Dr. Aldridge but finds it not nearly as effective as hydrocodone 10/, which she has received at discharge from the hospital. She generally gets about 6 hours of pain relief. She is grateful for the relief and denies side effects, carefully safeguards her medications. She has completed an opioid risk tool as part of her assessment in our clinic and her score is 1, considered low risk for addiction. She has been able to obtain some [address] [address] PAIN MANAGEMENT CONSULTATION Name: JUAN GRATN FRANSISCO Room #: REG ELLIOT Morales#: [id number] Admission: 12/01/19 Attend Phys: Bob Mart MD Discharge: Date of : 70 Report #: [id number] hydrocodone intermittently for the last 10-15 years for severe pain episodes. She was last seen in my clinic in April of 2019. At that time, she had some open wounds. She was seeing wound management. She had recently had a cardiac arrest during that brief procedure at in March. PHYSICAL EXAMINATION: GENERAL: She is pleasant, mildly depressed. 5 feet tall, 194 pounds, BMI is 38.0. We talked about important aspects of weight control and management of chronic pain. VITAL SIGNS: Her blood pressure is 127/65, heart rate 80, respirations 14, O2 sat is 96. NECK: Demonstrates tenderness along the paravertebral muscles and pain with flexion, extension, rotation, jqkw-km-lict tilt. CHEST: Clear. CARDIAC: Rhythm regular today without murmur. MUSCULOSKELETAL: Examination of the low back reveals tenderness with pain in forward flexion, extension, rotation, vufl-pn-cost tilt. Straight leg raising is negative. IMPRESSION: 1. Chronic cervicalgia and low back pain, spondylitic. No evidence of neuropathy. There is likely a myofascial component to each of these. 2. History of coronary artery disease and mitral valve disease, status post coronary artery bypass graft x 2 and MVR in 2012 at [facility], Dr. Reza. 3. Recurring episodes now of congestive heart failure. 4. Hypertension. 5. Insulin-dependent diabetes. RECOMMENDATIONS: I think she has longstanding chronic pain and will likely continue to have some skeletal pain and spondylitic discomfort. We discussed the importance of exercise as a management tool. She will need to be cautious. Cardiac rehabilitation program would be ideal where she could do something that would help her from a cardiovascular standpoint as well as the musculoskeletal benefits and pain benefits. For now if she can walk in the logistics lead before the humidity is bad, a simple walking program will be of benefit. We discussed the benefits of this for 3 conditions -- her heart condition, her diabetes and her pain. In view of her chronic pain as any other chronic disorder something she will probably have to some degree indefinitely. We had a lengthy discussion today about opioids and the use of low dose opioids in the treatment of chronic pain. She does benefit from hydrocodone. I have recommended that she initiate hydrocodone 10/325 one tablet available to her as an as-needed medication twice a day. We discussed the fact that she will likely remain on this indefinitely. [address] [place] [address] PAIN MANAGEMENT CONSULTATION Name: JUAN GRANT FRANSISCO Room #: REG ELLIOT MMaximus.#: [id number] Admission: 12/01/19 Attend Phys: Bob Mart MD Discharge: Date of : 70 Report #: [id number] Dependence develops but this is not the same as addiction. Using medications for therapeutic purpose under the direction of the physician at proper doses carefully safeguarding them, I believe is an appropriate therapy. We discussed side effects including constipation. Cognitive side effects also should be monitored for. An opioid agreement will be signed in my clinic. I will see her back in [address] Bradley feels comfortable providing her with this low dose 20 morphine milligram equivalents of hydrocodone indefinitely, I think this would be a reasonable way to manage her pain. Other pain clinics might suggest a variety of interventions and treatments including cortisone injections and neuroablative procedures or implants. Given her history, I think we should avoid all of the above. They carry too much risk. Thank you for sending her back in consultation. I will see her back in 1 month to establish a dose for medication management. By: 1309 1347 Bob Mart MD /nt
[2019-12-01 09:54] VITALS: BP 127/65
--- NOTE | 2019-12-01 10:09 | NUR ---
Pain Clinic Assessment: 1. History of Osteoarthritis: NECK BACK History of Rheumatoid Arthritis: Not Applicable 2. Height: 5 ft. 0 in. 152.4 cm. Weight: 194.6 lb. oz. 88.270 kg. Patient's BMI: 38.0 3. Vital Signs: BP: 127/65 Pulse: 80 Resp: 14 Temp: 02 Sat: 96 ECG Mon: 4. Pain Intensity: 7 5. Fall Risk: Dizziness: N Needs help standing or walking: N Fallen in the last 3 months: N Fall risk comments: 6. Patient on Blood Thinner: None 7. History of Hypertension: Y 8. Opioid Therapy greater than 6 weeks: N Opiate Contract Signed: 9. Risk Assessment Tool Provided: LOW RISK 04/25 10. Functional Assessment Tool: 11. Recreational Drug Use: Never Drug Type: Tobacco Use: Former Smoker Tobacco Type: Amount or Packs/day: How Many Years: Alcohol Use: No Frequency: Quant:
== END ==
LOC: PAIN 06:43
PROVIDERS: ATTEND Anesthesiology Pain Medicine
DX: G89.29 Other chronic pain (principal); M54.5 Low back pain; M54.2 Cervicalgia; I11.0 Hypertensive heart disease with heart failure; I50.9 Heart failure, unspecified; Z86.79 Personal history of other diseases of the circulatory system; Z79.899 Other long term (current) drug therapy

== ENCOUNTER → 2020-01-01 | Outpatient (CLI) | payer OTHER, BC ==
[~2020-01-01] VITALS: Ht 152.4 cm; Wt 90.4 kg
--- NOTE | ~2020-01-01 | HPC ---
[facility] [address] [address] PAIN MANAGEMENT CONSULTATION Name: JUAN GRANT FRANSISCO Room #: REG ELLIOT Morales#: [id number] Admission: 01/01/20 Attend Phys: Bob Mart MD Discharge: Date of : 70 Report #: [id number] THIS REPORT FOR: cc: Jessica Bradley DNP, Mary E. DNP Morgan, Richard L. MD ~ CC: Darnell Mart DATE OF SERVICE: 01/01/2020 Followup visit for chronic intractable neck pain and low back pain related to spondylosis. The patient is a 49-year-old with significant heart disease, who is here today for renewal of medication for chronic pain. We discussed her chronic illnesses, which include type 2 diabetes, requiring insulin; coronary artery disease and mitral valve disease. She had bypass surgery in 2011 along with a mitral valve replacement. She suffers from periodic congestive heart failure and she has chronic pain that limits her mobility. She complains of pain on nearly a daily basis. She scores it as a 7/10. Often times developing muscle spasms in her neck at night. Pain is worse with walking, standing and she has pain in her right wrist, which is arthritic. She was originally on tramadol provided by Dr. Aldridge but it was not helpful. I agreed to provide her with 2 hydrocodone 10/325 tablets per day. Frankly, given her coronary artery disease history, this is a far safer drug in my opinion than a nonsteroidal anti-inflammatory drug which she can get [id number]. We are grateful for the benefit that she receives from this small dose and she denies any side effects. She is able to do a bit more activity as a result of better pain control and her mood is improved as well. She never takes more than 2 per day, oftentimes taking the first one later in the day when she has been more active and takes 1 in the evening, which helps her sleep. She is also taking tizanidine for muscle spasm, but this has some anticholinergic side effects. PQRS review shows that she has significant spondylosis throughout the cervical spine and lumbar region. She is overweight at 38.9 BMI and we discussed the importance of weight control and healthy living in control of chronic pain. She will feel better if she takes better care of herself. We discussed dieting and just simple walking program. She is on no current blood thinners, but has a history of hypertension and congestive heart failure and is at risk of taking nonsteroidal anti-inflammatory drugs. She has completed an opioid risk tool [address] [address] PAIN MANAGEMENT CONSULTATION Name: JUAN GRANT FRANSISCO Room #: REG ELLIOT Espinoza.#: [id number] Admission: 01/01/20 Attend Phys: Bob Mart MD Discharge: Date of : 70 Report #: [id number] assessment and scores 1, which is considered low risk for addiction. Her functional assessment score is really high at 57/70, suggesting impact of pain in almost all of her daily activities. She continues to smoke and she was counseled. Many reasons obviously here to quit smoking at the age of 49 with significant comorbidities. PHYSICAL EXAMINATION: GENERAL: She is pleasant, wearing a mask for COVID restrictions. VITAL SIGNS: Blood pressure today is elevated at 154/94, heart rate 103, respirations 16. NEUROLOGIC: She moves independently from sitting to standing position. Her gait is nonantalgic. MUSCULOSKELETAL: She has pain throughout her spine, cervical, thoracic and lumbar with tenderness; pain with forward flexion and rotational movements. Bmpc-pb-fsfc rotational movements of her head and lateral tilt also exacerbates pain. Tenderness along the muscles in the paravertebral muscles consistent with deconditioning and spondylosis with spasm. IMPRESSION: 1. Chronic pain related to spondylosis. 2. History of coronary artery disease, mitral valve replacement, and congestive heart failure episodes. 3. Hypertension. 4. Insulin-dependent diabetes. RECOMMENDATION: I will continue her on 2 hydrocodone 10/325 tablets per day under terms of written opioid agreement, which was provided for today. I reviewed the prescription drug monitoring program information and there are no unexpected entries. We discussed the importance of safeguarding all medications. Urine drug screens which are quite expensive will be done at my discretion if I feel she is misusing drugs or there are any red flag behaviors. Followup visit planned in 2 months. If she is stable at that point and has followed our requirements for medication, I will see her at 3-month intervals. By: 1000 1241 Bob Mart MD /nt
[2020-01-01 09:00] VITALS: BP 154/94
--- NOTE | 2020-01-01 09:09 | NUR ---
Pain Clinic Assessment: 1. History of Osteoarthritis: NECK BACK History of Rheumatoid Arthritis: Not Applicable 2. Height: 5 ft. 0 in. 152.4 cm. Weight: 199.2 lb. oz. 90.357 kg. Patient's BMI: 38.9 3. Vital Signs: BP: 154/94 Pulse: 103 Resp: 16 Temp: 02 Sat: 96 ECG Mon: 4. Pain Intensity: 7 5. Fall Risk: Dizziness: N Needs help standing or walking: N Fallen in the last 3 months: N Fall risk comments: 6. Patient on Blood Thinner: None 7. History of Hypertension: Y 8. Opioid Therapy greater than 6 weeks: N Opiate Contract Signed: 9. Risk Assessment Tool Provided: LOW RISK 04/25 10. Functional Assessment Tool: 11. Recreational Drug Use: Never Drug Type: Tobacco Use: Former Smoker Tobacco Type: Cigarettes Amount or Packs/day: 1 ppd How Many Years: 20 Alcohol Use: No Frequency: Quant:
== END ==
LOC: PAIN 06:37
PROVIDERS: ATTEND Anesthesiology Pain Medicine
DX: M54.5 Low back pain (principal); I10 Essential (primary) hypertension; G89.29 Other chronic pain; Z79.4 Long term (current) use of insulin; Z86.79 Personal history of other diseases of the circulatory system; Z95.4 Presence of other heart-valve replacement

== ENCOUNTER → 2020-01-05 | Outpatient (CLI) | payer OTHER, BC | LOC: SJCVC 09:56 | PROVIDERS: ATTEND Internal Medicine Cardiovascular Disease | DX: R94.31 Abnormal electrocardiogram [ECG] [EKG] (principal); I25.10 Atherosclerotic heart disease of native coronary artery without angina pectoris; I10 Essential (primary) hypertension; E11.9 Type 2 diabetes mellitus without complications; Z95.1 Presence of aortocoronary bypass graft; Z79.899 Other long term (current) drug therapy; Z87.891 Personal history of nicotine dependence; Z86.79 Personal history of other diseases of the circulatory system ==

== ENCOUNTER → 2020-02-03 | Outpatient (CLI) | payer OTHER, BC ==
[~2020-02-03] MED LIST changes: +CARVEDILOL25 MG PO; +DEMADEX20 MG PO; +KLOR-CON 1010 MEQ PO; +NEURONTIN 300M300 M2 PO; +NITROGLYCERIN0.4 MG SUBLING; +SPIRONOLACTONE25 M1 PO; +ULTRAM 50MG TAB50 MG PO; +VITAMIN D3250 MC2 PO; +ZANAFLEX2 M1 PO; +ZETIA10 MG PO
== END ==
LOC: SJCVC 12:40
PROVIDERS: ATTEND Internal Medicine Cardiovascular Disease
DX: R94.31 Abnormal electrocardiogram [ECG] [EKG] (principal); I25.5 Ischemic cardiomyopathy; I25.10 Atherosclerotic heart disease of native coronary artery without angina pectoris; R00.2 Palpitations; E11.9 Type 2 diabetes mellitus without complications; E78.5 Hyperlipidemia, unspecified; I11.0 Hypertensive heart disease with heart failure; I50.9 Heart failure, unspecified; Z82.49 Family history of ischemic heart disease and other diseases of the circulatory system; Z87.891 Personal history of nicotine dependence; Z79.899 Other long term (current) drug therapy; Z98.890 Other specified postprocedural states; Z79.4 Long term (current) use of insulin

== ENCOUNTER → 2020-02-05 | Outpatient (CLI) | payer OTHER, BC ==
[~2020-02-05] MED LIST changes: -CARVEDILOL25 MG PO; -DEMADEX20 MG PO; -KLOR-CON 1010 MEQ PO; -NEURONTIN 300M300 M2 PO; -NITROGLYCERIN0.4 MG SUBLING; -SPIRONOLACTONE25 M1 PO; -ULTRAM 50MG TAB50 MG PO; -VITAMIN D3250 MC2 PO; -ZANAFLEX2 M1 PO; -ZETIA10 MG PO
== END ==
LOC: LAB 07:34
PROVIDERS: ATTEND Internal Medicine Cardiovascular Disease
DX: Z01.812 Encounter for preprocedural laboratory examination (principal); Z20.828 Contact with and (suspected) exposure to other viral communicable diseases

== ENCOUNTER 2020-02-09 09:12 | Observation (INO) | payer OTHER, BC ==
[~2020-02-09] VITALS: Ht 154.9 cm; Wt 90.3 kg
[~2020-02-09 09:12] MED LIST changes: +CARVEDILOL25 MG PO; +DEMADEX20 MG PO; +KLOR-CON 1010 MEQ PO; +NEURONTIN 300M300 M2 PO; +NITROGLYCERIN0.4 MG SUBLING; +SPIRONOLACTONE25 M1 PO; +ULTRAM 50MG TAB50 MG PO; +VITAMIN D3250 MC2 PO; +ZANAFLEX2 M1 PO; +ZETIA10 MG PO
[2020-02-09 10:08] LABS: ABSOLUTE NEUTROPHILS 5.4 thou/uL (1.4-8.2); EOSINOPHILS 0.6 % (0.0-3.0); HEMATOCRIT 42.7 % (37.0-47.0); LYMPHOCYTES 9.4 % (24.0-44.0); MCH 30.1 pg (26.0-34.0); MCHC 32.7 g/dL (28.0-37.0); MCV 92.1 fL (80.0-100.0); MONOCYTES 6.2 % (1.0-8.0); PLATELET COUNT 168 thou/uL (150-400); POLYS 82.8 % (36.0-66.0); RBC 4.64 mil/uL (4.20-5.00); RDW 16.3 % (10.5-14.5); WBC 6.5 thou/uL (4.0-11.0)
[2020-02-09 10:14] VITALS: BP 137/86
[2020-02-09 10:21] LABS: INR 1.1; PROTIME 11.1 Seconds (9.3-11.4)
[2020-02-09 10:25] LABS: ALBUMIN 3.9 g/dL (3.4-5.0); CALCIUM 9.2 mg/dL (8.5-10.1); TOTAL PROTEIN 7.5 g/dL (6.4-8.2)
[2020-02-09 13:59] VITALS: BP 130/64
--- NOTE | 2020-02-09 17:39 | NUR ---
pt arrived from pacu, left chest wall MARIANA, PT C/O BACK PAIN FROM LAYING ON TABLE FOR SO LONG IN ADDITION TO HER CHRONIC BACK PAIN, REPOSITIONED, NORCO GIVEN, AT SIDE, REVIEWED POC FOR NEW AICD, PT WILL ALSO AWAIT INCIDENT RESPONSE COORDINATOR'S INSTRUCTIONS. IMMOBILIZER ON L ARM, ON BEDREST UNTIL 1400 TOMORROW.
[2020-02-09 20:36] VITALS: BP 122/73
[2020-02-10 00:18] VITALS: BP 146/80
--- NOTE | 2020-02-10 01:59 | NUR ---
ASSESSMENTS CHARTED, MEDS CHARTED GIVEN. PATIENT RESTING IN BED DURING SHIFT. ON BEDREST POST PERMANENT PACEMAKER PLACEMENT. LEFT ARM IN IMMOBILIZER. C/O PAIN TO NECK AND CHEST 09/30. PAIN RESOLVED. PLAN OF CARE IS TO HAVE PACEMAKER INTEREGATED IN THE MORNING, THEN PATIENT WOULD DISCHARGE. FALL PRECAUTIONS IN PLACE DURING SHIFT.
[2020-02-10 04:52] VITALS: BP 141/78
[2020-02-10 08:09] VITALS: BP 147/83
[2020-02-10 09:04] VITALS: BP 147/83
--- NOTE | 2020-02-11 14:30 | P ---
[facility] [place] [address] PROCEDURE REPORT Name: JUAN GRANT FRANSISCO Room #: 201-P [facility] Jojo M.R.#: [id number] Admission: 02/09/20 Attend Phys: Quique Aguila MD Discharge: 02/10/20 Date of : 70 Report #: [id number] THIS REPORT FOR: cc: Jessica Bradley DNP, Mary E. DNP Couchonnal, Luis F. MD ~ CC: Quique Bradley ICD IMPLANTATION PREOPERATIVE DIAGNOSIS: Ischemic cardiomyopathy. POSTOPERATIVE DIAGNOSIS: Ischemic cardiomyopathy. HISTORY: The patient is a 49-year-old female with a history of coronary artery disease, status post CABG with an ischemic cardiomyopathy, EF of less than 35% with [place] [employer] functional class 2-3 heart failure symptoms, who is here for ICD implantation for primary prevention of sudden cardiac . PROCEDURES PERFORMED: Dual-chamber ICD implantation. ANESTHESIA: The patient underwent MAC anesthesia with no anesthesia related complications. DESCRIPTION OF PROCEDURE: The patient underwent informed consent. We discussed the details of the procedure, which include but not limited to bleeding, vascular damage, infection, stroke, AK, pneumothorax and cardiac perforation. She understood these risks and is willing to proceed. The patient was brought to EP laboratory in a fasting and unsedated state, prepped and draped in sterile fashion, received IV antibiotics and underwent a venogram showing patency of left axillary vein. Next, lidocaine was injected below the level of left clavicle. Incision was made, pocket was created over the prepectoral fascia and access was obtained twice to left axillary vein using the extrathoracic approach. Sheaths were positioned using the modified Seldinger technique. Next, under fluoroscopy, a lead was placed in the right ventricular apex and the lead was placed in the right atrial appendage both with adequate pacing and sensing thresholds. Leads were sutured to the prepectoral fascia using Ethibond. The pocket was irrigated with vancomycin. Pocket was closed in 2 layers using 2-0 for the deep layer, 3-0 for the middle layer and surgical glue was placed to outer skin layer. The patient awoke neurologically and hemodynamically intact. No complications and no significant bleeding. The implanted device was a Medtronic, model #NMPY7C7, serial #[id number]. Atrial lead is a 5076, 45 cm, serial #[id number]. The RV lead was a Medtronic model #6935, 55 cm, serial #[id number]. This ICD lead is single coil. The lead [address] [address] PROCEDURE REPORT Name: JUAN GRANT [facility] Room #: 201-P [facility] Jojo M.R.#: [id number] Admission: 02/09/20 Attend Phys: Quique Aguila MD Discharge: 02/10/20 Date of : 70 Report #: [id number] demonstrated P-wave of 2.2 millivolts, pacing impedance of 551 ohms, pacing threshold of 1.75 volts at 0.4 milliseconds. RV lead demonstrated R waves of 20 millivolts, pacing impedance 475 ohms, pacing threshold 0.75 volts at 0.4 milliseconds. The device was programmed to the DDD 60-130 mode. The VT zone was set at 180-220 beats per minute with 3 rounds of burst, followed by 3 rounds of ramp, followed by max output shocks. VF zone was set at greater than 240 beats per minute with ATP while charging followed by max output shocks. CONCLUSIONS: 1. Successful dual-chamber ICD implantation. 2. Satisfactory atrial and right ventricular pacing and sensing thresholds. <ELECTRONICALLY SIGNED> By: Quique Aguila MD 02/11/20 1430 1356 1430 Quique Aguila MD /nt
== END 2020-02-10 10:31 | disposition home or self-care (01) ==
LOC: CATH 09:12 → 2N 13:55 → CATH 13:56 → 2N 13:57
PROVIDERS: ADMIT Internal Medicine Cardiovascular Disease; ATTEND Internal Medicine Cardiovascular Disease
DX: I25.5 Ischemic cardiomyopathy (principal); I25.10 Atherosclerotic heart disease of native coronary artery without angina pectoris; E11.9 Type 2 diabetes mellitus without complications; I10 Essential (primary) hypertension; E78.5 Hyperlipidemia, unspecified; F41.9 Anxiety disorder, unspecified; Z79.899 Other long term (current) drug therapy; Z95.1 Presence of aortocoronary bypass graft; Z79.4 Long term (current) use of insulin

== ENCOUNTER → 2020-02-17 | Outpatient (CLI) | payer OTHER, BC | LOC: SJCVC 11:05 | PROVIDERS: ATTEND Internal Medicine Cardiovascular Disease | DX: Z45.02 Encounter for adjustment and management of automatic implantable cardiac defibrillator (principal); I25.5 Ischemic cardiomyopathy; I25.10 Atherosclerotic heart disease of native coronary artery without angina pectoris; E11.9 Type 2 diabetes mellitus without complications; E78.5 Hyperlipidemia, unspecified; I10 Essential (primary) hypertension; Z95.810 Presence of automatic (implantable) cardiac defibrillator; Z79.899 Other long term (current) drug therapy; Z87.891 Personal history of nicotine dependence ==

== ENCOUNTER → 2020-03-08 | Outpatient (CLI) | payer OTHER, BC ==
[~2020-03-08] VITALS: Ht 152.4 cm; Wt 89.2 kg
[~2020-03-08] MED LIST changes: +TIZANIDINE HCL 22 M1 PO
[2020-03-08 10:36] VITALS: BP 118/64
== END ==
LOC: PAIN 06:54
PROVIDERS: ATTEND Anesthesiology Pain Medicine
DX: G89.4 Chronic pain syndrome (principal); I25.10 Atherosclerotic heart disease of native coronary artery without angina pectoris; I49.9 Cardiac arrhythmia, unspecified; I10 Essential (primary) hypertension; E11.9 Type 2 diabetes mellitus without complications; F32.9 Major depressive disorder, single episode, unspecified; F11.20 Opioid dependence, uncomplicated; Z79.4 Long term (current) use of insulin; Z95.4 Presence of other heart-valve replacement; Z88.8 Allergy status to other drugs, medicaments and biological substances; Z79.899 Other long term (current) drug therapy

== ENCOUNTER → 2020-05-03 | Outpatient (CLI) | payer OTHER, BC ==
[~2020-05-03] MED LIST changes: +TRAZODONE HCL50 MG PO
== END ==
LOC: SJCVC 09:56
PROVIDERS: ATTEND Internal Medicine Cardiovascular Disease
DX: I42.9 Cardiomyopathy, unspecified (principal); R94.31 Abnormal electrocardiogram [ECG] [EKG]; I25.10 Atherosclerotic heart disease of native coronary artery without angina pectoris; E78.00 Pure hypercholesterolemia, unspecified; E11.22 Type 2 diabetes mellitus with diabetic chronic kidney disease; I13.0 Hypertensive heart and chronic kidney disease with heart failure and stage 1 through stage 4 chronic kidney disease, or unspecified chronic kidney disease; I50.9 Heart failure, unspecified; N18.9 Chronic kidney disease, unspecified; G89.29 Other chronic pain; E66.9 Obesity, unspecified; Z76.89 Persons encountering health services in other specified circumstances; Z95.1 Presence of aortocoronary bypass graft; Z95.810 Presence of automatic (implantable) cardiac defibrillator; Z79.4 Long term (current) use of insulin; Z79.899 Other long term (current) drug therapy; Z87.891 Personal history of nicotine dependence

== ENCOUNTER → 2020-05-06 | Outpatient (CLI) | payer OTHER, BC ==
[~2020-05-06] VITALS: Ht 152.4 cm; Wt 85.8 kg
[2020-05-06 09:08] VITALS: BP 167/99
--- NOTE | 2020-05-06 09:12 | NUR ---
Pain Clinic Assessment: 1. History of Osteoarthritis: NECK BACK History of Rheumatoid Arthritis: Not Applicable 2. Height: 5 ft. 0 in. 152.4 cm. Weight: 189.2 lb. oz. 85.821 kg. Patient's BMI: 37.0 3. Vital Signs: BP: 167/99 Pulse: 107 Resp: 18 Temp: 02 Sat: 95 ECG Mon: 4. Pain Intensity: 6 5. Fall Risk: Dizziness: N Needs help standing or walking: N Fallen in the last 3 months: N Fall risk comments: 6. Patient on Blood Thinner: None 7. History of Hypertension: Y 8. Opioid Therapy greater than 6 weeks: Y Opiate Contract Signed: 01/01/20 9. Risk Assessment Tool Provided: LOW RISK 04/25 10. Functional Assessment Tool: 11. Recreational Drug Use: Never Drug Type: Tobacco Use: Former Smoker Tobacco Type: Amount or Packs/day: How Many Years: Alcohol Use: No Frequency: Quant:
== END ==
LOC: PAIN 06:48
PROVIDERS: ATTEND Anesthesiology Pain Medicine
DX: G89.4 Chronic pain syndrome (principal); M54.5 Low back pain; F32.9 Major depressive disorder, single episode, unspecified; G47.00 Insomnia, unspecified; Z87.891 Personal history of nicotine dependence; Z79.899 Other long term (current) drug therapy

== ENCOUNTER 2020-05-27 04:25 | Inpatient (IN) | payer OTHER, BC ==
[~2020-05-27] VITALS: Ht 152.4 cm; Wt 83.0 kg
[2020-05-27 04:28] VITALS: BP 210/112
[2020-05-27 05:31] LABS: ABSOLUTE NEUTROPHILS 6.9 thou/uL (1.4-8.2); BASOPHILS 0.6 % (0.0-2.0); EOSINOPHILS 0.4 % (0.0-3.0); HEMATOCRIT 40.8 % (37.0-47.0); HEMOGLOBIN 13.4 gm/dL (12.0-15.0); LYMPHOCYTES 8.6 % (24.0-44.0); MCH 28.9 pg (26.0-34.0); MCHC 32.7 g/dL (28.0-37.0); MCV 88.2 fL (80.0-100.0); PLATELET COUNT 233 thou/uL (150-400); POLYS 85.4 % (36.0-66.0); RBC 4.63 mil/uL (4.20-5.00); RDW 15.1 % (10.5-14.5); WBC 8.1 thou/uL (4.0-11.0)
[2020-05-27 05:41] LABS: ANION GAP 11 mmol/L (7-16); BUN 20 mg/dL (7-18); CALCIUM 9.3 mg/dL (8.5-10.1); CHLORIDE 97 mmol/L (98-107); CO2 27 mmol/L (21-32); GLUCOSE 444 mg/dL (74-106); POTASSIUM 3.7 mmol/L (3.5-5.1); SODIUM 135 mmol/L (136-145)
[2020-05-27 05:42] LABS: URINE BILIRUBIN NEGATIVE (Negative); URINE BLOOD TRACE (Negative); URINE CLARITY CLEAR; URINE COLOR YELLOW; URINE GLUCOSE-RANDOM* 3+ (Negative); URINE KETONES NEGATIVE (Negative); URINE LEUKOCYTES-REFLEX NEGATIVE (Negative); URINE NITRITE-REFLEX NEGATIVE (Negative); URINE PROTEIN (DIPSTICK) NEGATIVE (Negative); URINE UROBILINOGEN 0.2 E.U./dl (0.2-1.0)
[2020-05-27 05:49] LABS: TROPONIN-I <0.06 ng/mL (<0.06)
--- NOTE | 2020-05-27 07:25 | EKG ---
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1970 Requested By: Trina Cantrell Order Number: [id number] MD: Mik Ramos Measurements Intervals [place] Rate: 114 P: 44 NV: 124 QRS: 47 QRSD: 114 T: 239 QT: 334 QTc: 461 Interpretive Statements Sinus tachycardia Probable left atrial enlargement LVH with secondary repolarization abnormality Baseline wander in lead(s) V2,V4 Compared to ECG 10/05/2019 00:09:44 No significant changes Electronically Signed On 05-27-2020 7:25:27 PILOT SUPERVISOR by Mik Ramos [email or web address] <ELECTRONICALLY SIGNED> By: Mik Ramos MD, [facility] 05/27/2025 0450 0450 Mik Ramos MD, [facility] /EPI
[2020-05-27 09:39] LABS: FOLIC ACID 12.4 ng/mL (8.6-58.9)
--- NOTE | 2020-05-27 11:38 | 2DMMODE ---
[facility] [place] [address] 2 D/M-MODE ECHOCARDIOGRAM Name: JUAN GRANT FRANSISCO Room #: 170-6 ADM IN M.R.#: [id number] Admission: 05/27/20 Attend Phys: Kaity Foley MD Discharge: Date of : 70 Report #: [id number] THIS REPORT FOR: cc: Jessica Bradley DNP, Mary E. DNP Park, Jin S. MD ~ APPROVED REPORT Study performed: 05/27/2020 10:19:47 EXAM: Comprehensive 2D, Doppler, and color-flow Echocardiogram Patient Location: ER Status: routine BSA: 1.78 HR: 78 bpm BP: 169/93 mmHg Rhythm: NSR Other Information Study Quality: Good Indications Congestive Heart Failure Dyspnea Hx: CABG, MV repair, cardiomyopathy, ICD, HTN, DM, COVID-19 (04/2020) 2D Dimensions RVDd: 38.45 mm IVSd: 14.00 (7-11mm) LVOT Diam: 19.00 (18-24mm) LVDd: 59.00 mm PWd: 10.59 (7-11mm) Ascending Ao: 29.52 (22-36mm) LVDs: 49.00 (25-40mm) Aortic Root: 26.24 mm Volumes Left Atrial Volume (Systole) Single Plane 4CH: 51.18 mL Single Plane 2CH: 51.85 mL LA ESV Index: 31.00 mL/m2 Aortic Valve AoV Peak Oliverio.: 1.98 m/s AO Peak Gr.: 15.60 mmHg LVOT Max P.89 mmHg [facility] [address] [place] [address] 2 D/M-MODE ECHOCARDIOGRAM Name: JUAN GRANT [facility] Room #: 170-6 [facility] IN .R.#: [id number] Admission: 05/27/20 Attend Phys: Trang Alfredo Discharge: Date of : 70 Report #: [id number] Mean Gr.: 8.40 mmHg AO V2 Mean: 1.37 m/s LVOT Max V: 1.11 m/s AO V2 VTI: 33.69 cm MADIHA Vmax: 1.53 cm2 Mitral Valve E/A Ratio: 1.3 MV Decel. Time: 219.16 ms MV E Max Oliverio.: 1.67 m/s MV A Oliverio.: 1.24 m/s MV PHT: 63.56 ms IVRT: 41.52 ms Pulmonary Valve PV Peak Oliverio.: 1.09 m/s PV Peak Gr.: 4.77 mmHg Pulmonary Vein P Vein S: 0.49 m/s P Vein D: 0.58 m/s P Vein S/D Ratio: 0.84 Tricuspid Valve TR Peak Oliverio.: 3.40 m/s RAP Estimate: 5.00 mmHg TR Peak Gr.: 46.27 mmHg PA Pressure: 51.00 mmHg Left Ventricle Left ventricle is mildly dilated. There is hypokinesis of the inferior and inferolateral segments. Mild basal hypertrophy is present. Left ventricular systolic function is moderate to severely decreased. LVEF is 30-35%. Grade II - pseudonormal filling dynamics. Right Ventricle The right ventricle is normal size. Right ventricle is hypokinetic. Device lead is present in the right ventricle. Atria The left atrium size is normal. The right atrium size is normal. Aortic Valve The aortic valve is normal in structure; mildly calcified leaflets. No aortic regurgitation is present. There is no aortic valvular stenosis. [facility] [address] [address] 2 D/M-MODE ECHOCARDIOGRAM Name: JUANITAJUAN [facility] Room #: 170-6 ADM IN M.R.#: [id number] Admission: 05/27/20 Attend Phys: Trang Alfredo Discharge: Date of : 70 Report #: [id number] Mitral Valve Mitral valve repair. Peak gradient of 11mmHg; mean of 4mmHg. Moderate to severe mitral regurgitation No evidence of mitral valve stenosis. Tricuspid Valve The tricuspid valve is normal in structure. Mild tricuspid regurgitation. Estimated PAP is 50-55mmHg. Pulmonic Valve The pulmonary valve is normal in structure. Trace pulmonic regurgitation. Great Vessels The aortic root is normal in size. The ascending aorta is normal in size. IVC is normal in size and collapses >50% with inspiration. Pericardium There is no pericardial effusion. <Conclusion> Left ventricle is mildly dilated. Left ventricular systolic function is moderate to severely decreased. The right ventricle is normal size. Device lead is present in the right ventricle. The aortic valve is normal in structure; mildly calcified leaflets. Mitral valve repair. Peak gradient of 11mmHg; mean of 4mmHg. Moderate to severe mitral regurgitation Mild tricuspid regurgitation. Estimated PAP is 50-55mmHg. <ELECTRONICALLY SIGNED> By: Darnell Cartagena MD 05/27/20 1138 1138 1138 Darnell Cartagena MD /INF
--- NOTE | 2020-05-27 16:20 | EKG ---
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[place] : 1970 Requested By: Kaity Foley Order Number: [id number] MD: Mik Ramos Measurements Intervals [place] Rate: 115 P: 45 NH: 123 QRS: 47 QRSD: 114 T: 238 QT: 339 QTc: 469 Interpretive Statements Sinus tachycardia Probable left atrial enlargement Borderline intraventricular conduction delay Repol abnrm suggests ischemia, lateral leads Baseline wander in lead(s) V4 Compared to ECG 05/27/2020 04:50:49 Possible ischemia now present Left ventricular hypertrophy no longer present Electronically Signed On 05-27-2020 16:20:30 INBOUND CALL CENTER REPRESENTATIVE by Mik Ramos [email or web address] <ELECTRONICALLY SIGNED> By: Mik Ramos MD, [facility] 05/27/20 1620 0452 0452 Mik Ramos MD, [facility] /EPI
[2020-05-27 18:15] VITALS: BP 90/70
[2020-05-27 18:23] VITALS: BP 150/81
[2020-05-27 18:48] VITALS: BP 138/80
[2020-05-28 00:03] VITALS: BP 141/81
[2020-05-28 00:06] LABS: GLYCOHEMOGLOBIN (HGB A1C) 11.4 % (4.8-5.6)
[2020-05-28 05:02] VITALS: BP 134/72
[2020-05-28 05:37] LABS: BASOPHILS 0.7 % (0.0-2.0); EOSINOPHILS 0.9 % (0.0-3.0); HEMATOCRIT 37.9 % (37.0-47.0); HEMOGLOBIN 12.5 gm/dL (12.0-15.0); MCH 29.2 pg (26.0-34.0); MCV 88.4 fL (80.0-100.0); MONOCYTES 7.7 % (1.0-8.0); PLATELET COUNT 249 thou/uL (150-400); POLYS 72.7 % (36.0-66.0); RBC 4.29 mil/uL (4.20-5.00); RDW 15.5 % (10.5-14.5); WBC 6.8 thou/uL (4.0-11.0)
[2020-05-28 06:13] LABS: CREATININE 1.2 mg/dL (0.6-1.0); POTASSIUM 3.2 mmol/L (3.5-5.1)
[2020-05-28 07:27] VITALS: BP 122/81
[2020-05-28] MEDS ORDERED: XARELTO20 MG PO (09:01)
[2020-05-28] MEDS ORDERED: ELIQUIS5 MG PO (09:06)
[2020-05-28 11:14] VITALS: BP 122/81
== END 2020-05-28 11:46 | disposition home or self-care (01) | DRG 291 ==
LOC: ER 04:25 → 2N 06:02 → EROBS 06:02 → 2N 18:41
PROVIDERS: Emergency Medicine; Nurse Practitioner; ADMIT Hospitalist; ATTEND Hospitalist
DX: I11.0 Hypertensive heart disease with heart failure (principal); I50.21 Acute systolic (congestive) heart failure; N17.9 Acute kidney failure, unspecified; I16.0 Hypertensive urgency; E11.65 Type 2 diabetes mellitus with hyperglycemia; I25.5 Ischemic cardiomyopathy; I25.10 Atherosclerotic heart disease of native coronary artery without angina pectoris; E78.5 Hyperlipidemia, unspecified; G89.29 Other chronic pain; E83.42 Hypomagnesemia; M54.9 Dorsalgia, unspecified; I48.0 Paroxysmal atrial fibrillation; E87.6 Hypokalemia; Z95.1 Presence of aortocoronary bypass graft; Z90.710 Acquired absence of both cervix and uterus; Z87.891 Personal history of nicotine dependence; Z79.82 Long term (current) use of aspirin; Z79.899 Other long term (current) drug therapy; Z82.49 Family history of ischemic heart disease and other diseases of the circulatory system; Z83.3 Family history of diabetes mellitus; Z95.810 Presence of automatic (implantable) cardiac defibrillator
CPT/HCPCS: 10081

== ENCOUNTER → 2020-06-04 | Outpatient (CLI) | payer OTHER, BC ==
[~2020-06-04] MED LIST changes: +COZAAR 50 MG TA50 M1 PO; +ELIQUIS5 MG PO; +XARELTO20 MG PO
== END ==
LOC: SJCVC 14:33
PROVIDERS: ATTEND Internal Medicine
DX: R94.31 Abnormal electrocardiogram [ECG] [EKG] (principal); I42.9 Cardiomyopathy, unspecified; I11.0 Hypertensive heart disease with heart failure; I50.9 Heart failure, unspecified; I25.10 Atherosclerotic heart disease of native coronary artery without angina pectoris; I48.0 Paroxysmal atrial fibrillation; E78.00 Pure hypercholesterolemia, unspecified; R60.9 Edema, unspecified; Z95.1 Presence of aortocoronary bypass graft; Z95.810 Presence of automatic (implantable) cardiac defibrillator

== ENCOUNTER 2020-06-06 05:22 | Inpatient (IN) | payer OTHER, BC ==
[~2020-06-06] VITALS: Ht 152.4 cm; Wt 85.3 kg
[~2020-06-06 05:22] MED LIST changes: -COZAAR 50 MG TA50 M1 PO
[2020-06-06 05:25] VITALS: BP 214/99
[2020-06-06 06:11] LABS: ABSOLUTE NEUTROPHILS 4.4 thou/uL (1.4-8.2); EOSINOPHILS 0.9 % (0.0-3.0); HEMATOCRIT 36.7 % (37.0-47.0); LYMPHOCYTES 12.2 % (24.0-44.0); MCH 29.1 pg (26.0-34.0); MCHC 32.7 g/dL (28.0-37.0); MONOCYTES 6.7 % (1.0-8.0); PLATELET COUNT 192 thou/uL (150-400); POLYS 79.2 % (36.0-66.0); RBC 4.12 mil/uL (4.20-5.00); RDW 15.7 % (10.5-14.5); WBC 5.6 thou/uL (4.0-11.0)
[2020-06-06 06:25] LABS: ALBUMIN 3.4 g/dL (3.4-5.0); ANION GAP 12 mmol/L (7-16); BUN 20 mg/dL (7-18); CALCIUM 8.9 mg/dL (8.5-10.1); CHLORIDE 96 mmol/L (98-107); CO2 26 mmol/L (21-32); CREATININE 1.1 mg/dL (0.6-1.0); POTASSIUM 3.9 mmol/L (3.5-5.1); SGOT 21 U/L (15-37); SGPT 26 U/L (14-59); SODIUM 134 mmol/L (136-145); TOTAL BILIRUBIN 0.5 mg/dL (0.2-1.0); TROPONIN-I <0.06 ng/mL (<0.06)
[2020-06-06 06:28] LABS: GLUCOSE 532 mg/dL (74-106)
--- NOTE | 2020-06-06 07:11 | NUR ---
Pt was covid + on 05/09/20 and questioned why she needed another covid test, called Senior Net C Developer who was told pt did not need to have covid tested at this time but if admitted would need to go to 3 floor
--- NOTE | 2020-06-06 07:42 | EKG ---
[address] [address] ELECTROCARDIOGRAM REPORT Name: WATSONPEYTONJUANJACINTO MOODY Room #: 170-6 ADM IN M.R.#: [id number] Admission: 06/06/20 Attend Phys: Ann Vigil MD Discharge: Date of : 70 Report #: [id number] [facility] ED Test Date: 2020-06-06 Test Time: 05:51:38 Pat Name: JUAN GRANT Department: Room: 170 Gender: F Signal Engineer: ELMIRA : 1970 Requested By: Trevor Camp Order Number: [id number] MD: Mik Ramos Measurements Intervals [place] Rate: 102 P: 55 AR: 140 QRS: 46 QRSD: 116 T: 248 QT: 368 QTc: 480 Interpretive Statements Sinus tachycardia Nonspecific intraventricular conduction delay Nonspecific repol abnormality, diffuse leads Baseline wander in lead(s) V4,V5 Compared to ECG 05/27/2020 04:52:09 Possible ischemia no longer present Electronically Signed On 06-06-2020 7:42:34 RESPIRATORY SERVICES MANAGER by Mik Ramos [email or web address] <ELECTRONICALLY SIGNED> By: Mik Ramos MD, [facility] 06/06/20 0742 0551 [id number] Mik Ramos MD, [facility] /EPI
[2020-06-06 07:49] VITALS: BP 179/92
[2020-06-06 09:30] VITALS: BP 160/80
[2020-06-06 13:00] VITALS: BP 140/78
[2020-06-06 16:48] VITALS: BP 127/75
--- NOTE | 2020-06-06 19:12 | NUR ---
PT ADIMITTED FROM ER FOR SOB AND CHEST PAIN, PT WAS COVID POSITIVE AT 05/09/20,PT IS A&OX3, PT'S VS ARE STABLE, PT'S SOB AND CHEST PAIN HAVE IMPROVED, PT IS ON ROOM AIR .
[2020-06-06 20:00] VITALS: BP 124/52
[2020-06-07] VITALS (7 sets, daily range): BP systolic 88–138; BP diastolic 60–81
[2020-06-07 05:55] LABS: ABSOLUTE NEUTROPHILS 5.6 thou/uL (1.4-8.2); BASOPHILS 0.7 % (0.0-2.0); EOSINOPHILS 1.2 % (0.0-3.0); HEMATOCRIT 34.3 % (37.0-47.0); HEMOGLOBIN 11.5 gm/dL (12.0-15.0); LYMPHOCYTES 9.5 % (24.0-44.0); MCH 29.6 pg (26.0-34.0); MCHC 33.4 g/dL (28.0-37.0); MCV 88.5 fL (80.0-100.0); MONOCYTES 5.8 % (1.0-8.0); PLATELET COUNT 191 thou/uL (150-400); POLYS 82.8 % (36.0-66.0); RBC 3.87 mil/uL (4.20-5.00); RDW 15.9 % (10.5-14.5); WBC 6.8 thou/uL (4.0-11.0)
--- NOTE | 2020-06-07 06:16 | NUR ---
PATIENT A/OX4, STATES PAIN AT THE BACK OF THE NECK. HYDROCODONE HELPING EASE THE PAIN. VSS, AFEBRILE. DENIES CHEST PAIN, SOA NOTED WITH ACTIVITIES , ON ROOM AIR, SATO2 93%-97%.PT CONTINENT B/B, AND UP TO BATHROOM WITH STAND BY ASSIST.SLEPT WELL.
[2020-06-07 06:38] LABS: ALBUMIN 3.1 g/dL (3.4-5.0); CALCIUM 9.1 mg/dL (8.5-10.1); CREATININE 1.2 mg/dL (0.6-1.0); MAGNESIUM 1.7 mg/dL (1.8-2.4); PHOSPHORUS 4.8 mg/dL (2.5-4.9); POTASSIUM 3.3 mmol/L (3.5-5.1); TOTAL BILIRUBIN 0.5 mg/dL (0.2-1.0); TOTAL PROTEIN 6.3 g/dL (6.4-8.2)
[2020-06-07] MEDS ORDERED: COZAAR 50 MG TA50 M1 PO (11:10)
--- NOTE | 2020-06-07 14:02 | NUR ---
INITIAL ASSESSMENT/DISCHARGE NOTE: SW reviewed chart and spoke with nursing. Pt was admitted from home due to CHF exacerbation. Pt placed in Enhanced Isolation to r/o COVID-19. Pt's test is negative. Pt has discharge orders to go home today. CHIP spoke with pt via phone. Introduced role of SW. Pt is alert/orientated x 4. Pt reports she lives at home with her family. Prior to admission, pt was independent with ADLs. No use of DME. No hx of services or post-acute placement. Pt's PCP is Dr. Jessica Bradley. Pt states she is unaware of her discharge orders and would like to speak with the physician. SW notified pt's nurse. Pt will have transportation home when discharged. No discharge needs identified at this time, but is available to assist should needs arise.
--- NOTE | 2020-06-07 19:40 | NUR ---
RN ASSUMED PT'S CARE AT 0700AM, PT IS A&OX3, PT'S SOB HAS IMPROVED, PT'S VS ARE STABLE, PT MAY DC TO HOME TOMORROW.
[2020-06-08 05:42] VITALS: BP 119/64
[2020-06-08 06:16] LABS: CALCIUM 8.9 mg/dL (8.5-10.1); CREATININE 1.4 mg/dL (0.6-1.0); POTASSIUM 3.4 mmol/L (3.5-5.1)
[2020-06-08 07:44] VITALS: BP 122/61
--- NOTE | 2020-06-08 07:55 | NUR ---
PT MAKING PROGRESS TOWARDS GOALS. ON ROOM AIR THROUGHOUT THE NIGHT. NO REPORTS OF SOA AT REST OR WITH AMBULATING TO TOILET.
--- NOTE | 2020-06-08 13:23 | NUR ---
DISCHARGE NOTE: SW reviewed chart and spoke with nursing and attending physician. Pt is medically stable for discharge home today. No discharge needs identified. Pt's family to provide transportation home this afternoon. SW is available to assist should needs arise.
--- NOTE | 2020-06-08 13:51 | NUR ---
PT CARE TAKEN OVER GANGA, PT ALERT AND ORIENTED X4, DENIES CHEST PAIN, NAUSEA AND VOMITTING. P IS ON ROOM AIR, NO SIGNS OF DISTRESS. UP AD LAYLA. DISCHARGE ORDERS IN, PT STATED FAMILY WILL BE COMING AROUND 330 TO 4PM, SO ANTICIPATING FOR D/C AROUND THAT TIMES. WILL CONTINUE TO MONITOR.
[2020-06-08 14:10] VITALS: BP 122/61
--- NOTE | 2020-06-08 15:03 | NUR ---
DISCHARGE INSTRUCTIONS, PT MADE AWARE OF APPOINTMENT WITH CARDIOLOGISTS. NEW MED INFORMATATION GIVEN TO PT. IV REMOVED. ALL BELINGINGS PACKED. WAITING FOR PT RIDE TO GET HERE
== END 2020-06-08 15:38 | disposition home or self-care (01) | DRG 291 ==
LOC: ER 05:22 → 3W 07:35 → EROBS 07:35 → 3W 08:24
PROVIDERS: Emergency Medicine; Hospitalist; ADMIT Internal Medicine; ATTEND Internal Medicine
DX: I13.0 Hypertensive heart and chronic kidney disease with heart failure and stage 1 through stage 4 chronic kidney disease, or unspecified chronic kidney disease (principal); I50.43 Acute on chronic combined systolic (congestive) and diastolic (congestive) heart failure; N17.0 Acute kidney failure with tubular necrosis; I42.8 Other cardiomyopathies; I16.0 Hypertensive urgency; E11.65 Type 2 diabetes mellitus with hyperglycemia; R07.9 Chest pain, unspecified; I48.0 Paroxysmal atrial fibrillation; I25.10 Atherosclerotic heart disease of native coronary artery without angina pectoris; E78.5 Hyperlipidemia, unspecified; G89.29 Other chronic pain; I34.0 Nonrheumatic mitral (valve) insufficiency; E87.6 Hypokalemia; I27.20 Pulmonary hypertension, unspecified; Z20.822 Contact with and (suspected) exposure to COVID-19; Z66 Do not resuscitate; Z90.710 Acquired absence of both cervix and uterus; Z79.01 Long term (current) use of anticoagulants; Z95.1 Presence of aortocoronary bypass graft; Z98.1 Arthrodesis status; Z79.891 Long term (current) use of opiate analgesic; Z79.899 Other long term (current) drug therapy; Z79.82 Long term (current) use of aspirin; Z79.4 Long term (current) use of insulin
CPT/HCPCS: 10879

== ENCOUNTER → 2020-06-17 | Outpatient (CLI) | payer OTHER, BC ==
[~2020-06-17] MED LIST changes: +COZAAR 50 MG TA50 M1 PO
== END ==
LOC: SJCVC 14:47
PROVIDERS: ATTEND Internal Medicine Cardiovascular Disease
DX: R94.31 Abnormal electrocardiogram [ECG] [EKG] (principal); I42.9 Cardiomyopathy, unspecified; I25.810 Atherosclerosis of coronary artery bypass graft(s) without angina pectoris; E78.00 Pure hypercholesterolemia, unspecified; I48.91 Unspecified atrial fibrillation; I13.0 Hypertensive heart and chronic kidney disease with heart failure and stage 1 through stage 4 chronic kidney disease, or unspecified chronic kidney disease; E11.22 Type 2 diabetes mellitus with diabetic chronic kidney disease; N18.9 Chronic kidney disease, unspecified; I50.9 Heart failure, unspecified; E78.5 Hyperlipidemia, unspecified; E66.9 Obesity, unspecified; Z95.1 Presence of aortocoronary bypass graft; Z82.49 Family history of ischemic heart disease and other diseases of the circulatory system; Z87.891 Personal history of nicotine dependence; Z95.810 Presence of automatic (implantable) cardiac defibrillator; Z79.4 Long term (current) use of insulin; Z79.82 Long term (current) use of aspirin; Z79.899 Other long term (current) drug therapy

== ENCOUNTER 2020-06-19 14:40 | Inpatient (IN) | payer OTHER, BC ==
[~2020-06-19] VITALS: Ht 152.4 cm; Wt 83.3 kg
[2020-06-19 14:43] VITALS: BP 187/113
[2020-06-19 15:45] LABS: ABSOLUTE NEUTROPHILS 6.4 thou/uL (1.4-8.2); BASOPHILS 0.5 % (0.0-2.0); EOSINOPHILS 0.4 % (0.0-3.0); HEMATOCRIT 35.5 % (37.0-47.0); HEMOGLOBIN 11.7 gm/dL (12.0-15.0); LYMPHOCYTES 9.7 % (24.0-44.0); MCH 29.6 pg (26.0-34.0); MCHC 33.1 g/dL (28.0-37.0); MCV 89.5 fL (80.0-100.0); MONOCYTES 5.1 % (1.0-8.0); PLATELET COUNT 204 thou/uL (150-400); POLYS 84.3 % (36.0-66.0); RBC 3.97 mil/uL (4.20-5.00); RDW 16.7 % (10.5-14.5); WBC 7.6 thou/uL (4.0-11.0)
[2020-06-19 16:02] LABS: PROTIME 11.2 Seconds (9.3-11.4)
[2020-06-19 16:06] LABS: ALBUMIN 3.5 g/dL (3.4-5.0); ANION GAP 9 mmol/L (7-16); BUN 15 mg/dL (7-18); CALCIUM 9.2 mg/dL (8.5-10.1); CHLORIDE 99 mmol/L (98-107); CO2 31 mmol/L (21-32); GLUCOSE 201 mg/dL (74-106); LIPASE 108 U/L (73-393); SGOT 16 U/L (15-37); SGPT 18 U/L (14-59); SODIUM 139 mmol/L (136-145); TOTAL BILIRUBIN 0.8 mg/dL (0.2-1.0); TOTAL PROTEIN 6.9 g/dL (6.4-8.2); TROPONIN-I <0.06 ng/mL (<0.06)
[2020-06-19 16:08] LABS: POTASSIUM 2.8 mmol/L (3.5-5.1)
[2020-06-19 17:30] LABS: CHOLESTEROL 70 mg/dL (<200); HDL CHOLESTEROL 41 mg/dL (>40); LDL CHOLESTEROL 13 mg/dL (<100); TC:HDL 1.7 Ratio (Not establshd); TRIGLYCERIDE 82 mg/dL (<150); VLDL 16 mg/dL (<40)
[2020-06-19 20:25] VITALS: BP 134/70
[2020-06-19 20:58] VITALS: BP 146/72
[2020-06-19 21:45] VITALS: BP 152/79
[2020-06-19 22:54] LABS: POTASSIUM 3.6 mmol/L (3.5-5.1); TROPONIN-I <0.06 ng/mL (<0.06)
[2020-06-19 23:45] VITALS: BP 105/54
--- NOTE | 2020-06-20 00:08 | NUR ---
PATIENT IS A NEW ADMISSION TO THE UNIT THIS SHIFT. SHE ARRIVED VIA CART FROM THE ER AND WAS ABLE TO AMBULATE TO THE ROOM WITHOUT INCIDENT. PATIENT IS FULLY ALERT AND ORIENTED AND ABLE TO CALL APPROPRIATELY FOR NEEDS AND PARTICIPATE FULLY IN ADMISSION. NO COMPLAINTS OF CHEST PAIN, PATIENT DID STATE CHRONIC BACK PAIN. SINUS RHYTHM ON THE MONITOR, PRELIMINARY TROPONIN NEGATIVE. NURSE TO FULLY COMPLETE ADMISSION AND INITIATE PLAN OF CARE.
[2020-06-20 03:21] VITALS: BP 117/61
[2020-06-20 03:33] LABS: HEMATOCRIT 35.2 % (37.0-47.0); HEMOGLOBIN 11.4 gm/dL (12.0-15.0); MCH 29.4 pg (26.0-34.0); MCHC 32.5 g/dL (28.0-37.0); MCV 90.4 fL (80.0-100.0); RBC 3.9 mil/uL (4.20-5.00); RDW 16.2 % (10.5-14.5); WBC 7.5 thou/uL (4.0-11.0)
[2020-06-20 03:47] LABS: ANION GAP 7 mmol/L (7-16); BUN 16 mg/dL (7-18); CALCIUM 8.7 mg/dL (8.5-10.1); CHLORIDE 102 mmol/L (98-107); CO2 29 mmol/L (21-32); CREATININE 1.1 mg/dL (0.6-1.0); GLUCOSE 193 mg/dL (74-106); MAGNESIUM 1.7 mg/dL (1.8-2.4); POTASSIUM 3.5 mmol/L (3.5-5.1); SODIUM 138 mmol/L (136-145); TROPONIN-I <0.06 ng/mL (<0.06)
[2020-06-20 06:05] LABS: GLYCOHEMOGLOBIN (HGB A1C) 10.1 % (4.8-5.6)
[2020-06-20 08:00] VITALS: BP 128/71
[2020-06-20 12:00] VITALS: BP 119/64
--- NOTE | 2020-06-20 14:13 | EKG ---
[address] [place] [address] ELECTROCARDIOGRAM REPORT Name: JUAN GRANT FRANSISCO Room #: 200-I ADM IN ..#: [id number] Admission: 06/19/20 Attend Phys: Tre Meyers MD Discharge: Date of : 70 Report #: [id number] [facility] ED Test Date: 2020-06-19 Test Time: 14:47:17 Pat Name: JUAN GRANT Department: Room: 200 Gender: F Spearer: : 1970 Requested By: Trevor Camp Order Number: [id number] MD: Agapito Cleary Measurements Intervals [place] Rate: 103 P: 52 AR: 130 QRS: 44 QRSD: 119 T: 254 QT: 350 QTc: 458 Interpretive Statements Sinus tachycardia Nonspecific intraventricular conduction delay Nonspecific ST and T wave abnormality Compared to ECG 06/06/2020 05:51:38 No significant change was found Electronically Signed On 06-20-2020 14:13:29 STORAGE GARAGE ATTENDANT by Agapito Cleary [email or web address] <ELECTRONICALLY SIGNED> By: Agapito Cleary MD, [facility] 06/20/20 1413 1447 144 Agapito Cleary MD, [facility] /EPI
--- NOTE | 2020-06-20 15:40 | NUR ---
ASSESSMENT CHARTED PT ALERT AND ORIENTED. VSS. PRN PAIN MED GIVEN FOR NECK PAIN WITH PARTIAL RELIEF. NEW ORDERS NOTED. NO CONCERNS AT THIS TIME.
[2020-06-20 16:00] VITALS: BP 130/70
[2020-06-20 20:00] VITALS: BP 139/89
[2020-06-21] VITALS (8 sets, daily range): BP systolic 111–143; BP diastolic 21–86
[2020-06-21 03:26] LABS: CREATININE 1.4 mg/dL (0.6-1.0); POTASSIUM 3.6 mmol/L (3.5-5.1)
--- NOTE | 2020-06-21 06:12 | NUR ---
ASSUME CARE 1900. PT/VITALS STABLE. DENIES ANY FURTHER CHEST PAIN. A/O X 4. GOOD ENDURANCE TO ACTIVITY. SR/OCCASSIONAL BBB ON MONITOR. NO DISTRESS NOTED. ADEQUATE REST. NPO SINCE MIDNIGHT FOR NUC MED STRESS TEST TODAY. WILL CONTINUE TO MONITOR AND FOLLOW WITH POC
--- NOTE | 2020-06-21 11:33 | NUR ---
Note Given: Y Facility List Provided:Y Hector Santoro: None Selected
--- NOTE | 2020-06-21 16:05 | NUR ---
PT CARE ASSUMED AT 0700. ASSESSMENTS CHARTED. MEDICATIONS CHARTED. LFA IV. SINUS RHYTHM. NM STRESS TEST CANCELLED. ACHS. NPO AFTER 0000. CARDIAC CATH SCHEDULED FOR 06/22/20. UP AD LAYLA. CHRONIC NECK PAIN.
[2020-06-22] VITALS (16 sets, daily range): BP systolic 110–153; BP diastolic 52–88
[2020-06-22 04:44] LABS: CREATININE 1.1 mg/dL (0.6-1.0); POTASSIUM 4.1 mmol/L (3.5-5.1)
--- NOTE | 2020-06-22 06:17 | NUR ---
Patient stable throughout night. Complains of constant neck pain, partially relieved with pain medications. 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 Progressing towards goals.
[2020-06-22 06:38] LABS: HEMATOCRIT 35.6 % (37.0-47.0); HEMOGLOBIN 11.7 gm/dL (12.0-15.0); MCH 29.9 pg (26.0-34.0); MCV 90.6 fL (80.0-100.0); RBC 3.93 mil/uL (4.20-5.00); RDW 16.4 % (10.5-14.5); WBC 6.3 thou/uL (4.0-11.0)
[2020-06-22 13:39] LABS: BE(vivo) 0.1 mmol/L (-2 to +3); HCO3 25.6 mmol/L (22.0-26.0); HCO3 26.3 mmol/L (22.0-26.0); PCO2 44.6 mmHg (35.0-45.0); PCO2 VENOUS 44.5 mmHg (41.0-51.0); PO2 103.7 mmHg (80.0-100.0); PO2 VENOUS 33.4 mmHg (35.0-45.0); pH 7.389 (7.360-7.450); sO2 97.7 % (92.0-98.0)
--- NOTE | 2020-06-22 15:51 | CATHLAB ---
[facility] [address] [place] [address] INVASIVE PROCEDURE REPORT Name: JUAN GRANT FRANSISCO Room #: 200-I ADM IN .R.#: [id number] Admission: 06/19/20 Attend Phys: Tre Meyers MD Discharge: Date of : 70 Report #: [id number] THIS REPORT FOR: cc: Jessica Bradley DNP, Mary E. DNP Park, Jin S. MD ~ APPROVED REPORT Study performed: 06/22/2020 12:47:32 Patient Details Patient Status: In-Patient Room #: 200 The patient is a 49 year-old female Event Personnel Darnell Cartagena Director Music, Julianna Hedrick RTR Monitor, Ghislaine Escalante RN RN, Madan Bazan RTR Scrub Procedures Performed Art Access - R femoral artery* Minh Access - R femoral vein Right and Left Heart Cath w/or w/o Coronarie [id number] RLHC Hemostasis w/ Mynx Hemostasis with Manual pressure 29501 Initial Mod Sed Same Phys/QHP Gr5y 898987 95961 Mod Sed Same Phys/QHP Ea 482133 Indication Dyspnea, Heart failure, Unstable angina , Cardiomyopathy, Chest pain Risk Factors Hypercholesterolemia, Coronary Artery DiseaseHypertension, Diabetes Previous Procedures/Diagnoses Previous CABG, Previous Valve Surgery Procedure Narrative The Right Groin^ was infiltrated with 1% Lidocaine subcutaneous anesthesia. A Right Heart Catheterization was performed with a 7 Fr. Cook-Martinez catheter and pressure were recorded. Cardiac outputs were obtained by the Wendy method. A PINNACLE 4FR Sheath #[id number] sheath was inserted into the RFA^. Coronary angiography was performed using coronary diagnostic catheters. The right coronary system was accessed and visualized with a 3DRC catheter. The left coronary system was accessed and visualized with a JL4 catheter. The left ventricle was [facility] [address] [place] [address] INVASIVE PROCEDURE REPORT Name: JUAN GRANT [facility] Room #: 200-I [facility].#: [id number] Admission: 06/19/20 Attend Phys: Tre Meyers MD Discharge: Date of : 70 Report #: [id number] accessed and visualized with a PIGTAIL catheter. Hemostasis was obtained with manual pressure following sheath removal without any complications. The patient tolerated the procedure well and there were no complications associated with the procedure. There was no hematoma. Intraoperative Conscious Sedation Sedation start time: 13:12 Case end Time: 14:10 Fentanyl 100 mcg Versed 2 mg Fluoro Time: 8.10 minutes Dose: DAP 31466.30 cGycm2 1789 mGy Contrast Type and Amount: Visipaque 35 ml Omnipaque 80ml Diagnostic Cath Left Main Left main artery is a patent vessel, with no flow-limiting lesions. LAD After the takeoff of the first diagonal artery and first septal accelerator systems director, there is a total occlusion in the LAD. There is a patent NASH graft with an end-to-side anastomosis to the mid segment of the LAD. Shortly after the anastomosis, there is a severe occlusion in the [place] LAD, 70%. The distal LAD extends around the apex. Diagonal 1 This is filled via the left main artery, has a severe occlusion at the ostium, 80%. Circumflex The left circumflex artery is totally occluded at the proximal segment. Appears to be codominant. OM1 Appears to be partially filled via collateral circulation. OM3 This vessel is opacified via collateral circulation from the PDA. Right Coronary There is a total occlusion in the [place] RCA. R PDA There is a patent SVG to the proximal segment of the PDA. This graft supplies blood to the entire PDA and it branches. Left Ventriculography The left ventricle is dilated in size with Diminished contractility. The left ventricular ejection fraction is estimated to be 25-30%. Hemodynamics The right atrial mean pressure is 11 mmHg. The right ventricular pressure is 62/13 mmHg. The pulmonary artery pressure is 79/35 mmHg with a mean of 52 mmHg. The mean pulmonary capillary wedge pressure [address] [address] INVASIVE PROCEDURE REPORT Name: JUAN GRANT [facility] Room #: 200-I [facility] IN M.R.#: [id number] Admission: 06/19/20 Attend Phys: Tre Meyers MD Discharge: Date of : 70 Report #: [id number] is 25 mmHg. The aortic pressure is 119/64 mmHg with a mean of 72 mmHg. The left ventricular pressure is 130/5 mmHg with a mean of mmHg. The left ventricular end diastolic pressure is 23 mmHg. PaO2 saturation is 62.50 %. Arterial saturation is 96.10 %. The cardiac output using the Wendy method is 3.32 L/min. The cardiac index using the Wendy method is 1.83 L/min/m2. Conclusion 1. There is a patent NASH graft to the LAD. There is a severe stenosis within the [place] LAD after the anastomosis. 2. There is a severe occlusion at the ostium of the first diagonal artery. 3. There is a patent SVG to the PDA. 4. The left circumflex system is filled via collateral circulation. 5. There is severe cardiomyopathy and known severe mitral regurgitation. 6. Right-sided cardiac pressures evaluated, with severe pulmonary hypertension. 7. Recommend guideline directed medical therapy and CV consultation. Consider staged PCI involving the LAD and first diagonal artery. <ELECTRONICALLY SIGNED> By: Darnell Cartagena MD 06/22/20 1551 155 155 Darnell Cartagena MD /INF
--- NOTE | 2020-06-22 19:49 | NUR ---
PT CARE ASSUMED AT 0700. ASSESSMENTS CHARTED. MEDICATIONS CHARTED. LFA IV. SINUS RHYTHM. ACHS. UP AD LAYLA. RT & LT CARDIAC CATH; NO INTERVENTION. HEMOSTASIS AT 1409, BEDREST UNTIL 1709. IV WORKS BUT LEAKS. PT STATES IV THERAPY WAS NEEDED TO PLACE IV. I WAS UNABLE TO LOCATE AN IV SITE; INFORMED CAROLA. PT HAS FEAR OF NEEDLES, DOES WANT NUMEROUS ATTEMPTS.
[2020-06-23 05:05] VITALS: BP 142/70
[2020-06-23 05:08] LABS: HEMATOCRIT 36.1 % (37.0-47.0); HEMOGLOBIN 11.7 gm/dL (12.0-15.0); MCH 29.7 pg (26.0-34.0); MCHC 32.5 g/dL (28.0-37.0); MCV 91.3 fL (80.0-100.0); RBC 3.95 mil/uL (4.20-5.00); RDW 16.5 % (10.5-14.5); WBC 6.3 thou/uL (4.0-11.0)
[2020-06-23 05:09] LABS: CREATININE 1.2 mg/dL (0.6-1.0); POTASSIUM 3.7 mmol/L (3.5-5.1)
--- NOTE | 2020-06-23 05:35 | NUR ---
SLEPT MOST OF SHIFT. DENIES COMPLAINTS OF PAIN THIS AM. UP AD LAYLA IN ROOM WITH STEADY GAIT. AWAITING TO SPEAK TO THIS AM TO DECIDE MEDICAL PLAN. WORKING ON GOALS AND PLAN OF CARE FOR NOC. PROGRESSING TOWARDS DISCHARGE GOALS SLOWLY. CONTINUE TO ASSES CLOSELY.
[2020-06-23 07:18] VITALS: BP 135/74
[2020-06-23 11:33] VITALS: BP 116/56
--- NOTE | 2020-06-23 11:40 | NUR ---
Chart reviewed and cm screening completed at bedside. The pt is a&ox4 and was conversant. She notes she lives with spouse who was at bedside this am. She is indep with gait and adl's and notes good support system. She is hoping to dc home later today or tomorrow. She is here with CHF and had heart cath yesterday. Pt on iv lasix and diuresing today. She denies any dc needs or concerns. She sees Jessica Bradley NP at [facility] and will make a f/u with them. She is disabled and has medicare and [facility] coverage for scipts or f/u care. Will remain available should dc needs arise.
[2020-06-23 16:26] VITALS: BP 121/86
--- NOTE | 2020-06-23 17:45 | NUR ---
ASSUMED CARE SHIFT CHANGE. ASSESSMENTS CHARTED.MEDS GIVEN. VSS. C/O PAIN MANAGED WITH PO PAIN MEDS. DENIES CP/SOB. PT UP ADLIB TOLERATING WELL. PLAN FOR DIURESIS PER CARDIOLOGY, PT DIURESING APPROPRIATELY. CONTINUING POC. WILL PASS ON REPORT TO NOC RN.
[2020-06-23 19:55] VITALS: BP 130/64
[2020-06-24 03:47] VITALS: BP 128/62
[2020-06-24 05:45] LABS: CALCIUM 9.5 mg/dL (8.5-10.1); CREATININE 1.3 mg/dL (0.6-1.0); POTASSIUM 3.9 mmol/L (3.5-5.1)
[2020-06-24 07:49] VITALS: BP 127/65
[2020-06-24] MEDS ORDERED: DEMADEX20 MG PO (08:51)
[2020-06-24 10:59] VITALS: BP 127/65
--- NOTE | 2020-06-24 11:19 | NUR ---
ASSUMED CARE OF PT AT SHIFT CHANGE. ASSESSMENT CHARTED. MEDS GIVEN PER JUN. PT A&OX4, C/O PAIN TREATED WITH PO MEDS WITH PARTIAL RELIEF. DISCHARGE ORDERS AND INSTRUCTIONS COMPLETE. IV AND TELE DC'D. PT TAKEN TO ER ENTRANCE VIA WHEELCHAIR BY THIS NURSE TO HUSBANDING WAITING IN TRUCK.
[2020-06-24 11:21] VITALS: BP 127/65
--- NOTE | 2020-06-27 08:24 | HC ---
[facility] [place] [address] CONSULTATION Name: JUAN GRANT FRANSISCO Room #: 200-I [facility] IN M.R.#: [id number] Admission: 06/19/20 Attend Phys: Tre Meyers MD Discharge: 06/24/20 Date of : 70 Report #: [id number] THIS REPORT FOR: cc: Jessica Bradley DNP, Mary E. DNP Forman, John M. MD ~ We were asked by Dr. Cartagena to see the patient. HISTORY OF PRESENT ILLNESS: The patient is a 49-year-old with cardiomyopathy. The patient presented to the Emergency Department with heaviness in her chest and shortness of breath. The patient states that this is different from when she had coronary artery disease in 2012. The patient states she has been in the hospital almost weekly for the past month with recurrent shortness of breath and fluid retention. The patient states that in 2012 she had coronary artery bypass x 2 and mitral valve repair with angioplasty ring. The patient states she was told at that time that an incomplete bypass was done and that the repair was not fully satisfactory. The patient states she has had heart failure problems on and off for the past 2 years and has been in the hospital three times in the last month. The patient was admitted on 06/19/2020. NT-proBNP was over 8000. Cardiac catheterization today shows ejection fraction in the 25-30% range. There is no obvious mitral incompetence, but just poor filling and emptying of the heart. A graft to right coronary is opened. The left internal mammary artery graft was opened to the LAD, but there is a lesion beyond it. The LAD itself is occluded proximally. The right coronary is occluded and the circ is occluded. There is a patent proximal LAD that feeds a first diagonal, but then the LAD is occluded beyond this. It looks like there is diffuse wall motion abnormality on the ventriculogram. PAST MEDICAL HISTORY: Significant for as mentioned coronary artery disease with mitral incompetence. The patient also has diabetes mellitus, hypertension and is treated for hyperlipidemia. FAMILY HISTORY: The patient states her family history is strongly positive for coronary artery disease. MEDICATIONS: At home includes ezetimibe, potassium, spironolactone, torsemide, carvedilol, rosuvastatin, aspirin, insulin, apixaban, losartan and hydrocodone. ALLERGIES: The patient denies. [address] [address] CONSULTATION Name: JUANITAJUAN ABRAZO [facility] Room #: 200-I [facility] IN .R.#: [id number] Admission: 06/19/20 Attend Phys: Tre Meyers MD Discharge: 06/24/20 Date of : 70 Report #: [id number] REVIEW OF SYSTEMS: I agree with the review of systems as dictated in the Emergency Department. PHYSICAL EXAMINATION: GENERAL: The patient is sitting in bed. The patient states she is short of breath when she reclines, but she is reasonably comfortable with elevation. VITAL SIGNS: Temperature 36.6, heart rate 67, respiratory rate 18, blood pressure 123/61, O2 sat 98% on room air. HEENT: No scleral icterus, no arcus. NECK: No bruit, no mass. CHEST: Clear to auscultation. HEART: Rhythm regular. I hear no bruit. Heart sounds are distant. ABDOMEN: Soft. EXTREMITIES: No clubbing, cyanosis or edema, 2+ right popliteal pulse, 1+ left popliteal pulse. SKIN: No rash or infection. NEUROLOGIC: No motor or sensory dysfunction. MUSCULOSKELETAL: No significant bone or joint asymmetry or deformity. I have discussed the case with Dr. Cartagena and I have reviewed the situation with the patient. The patient has extremely high pulmonary artery pressures at the heart catheterization today in the 80 range systolic. From the standpoint of bypass surgery, the only significant lesion that could be bypassed is in the LAD beyond the mammary that this is probably treatable with stents and angioplasty and is not likely the root of the patient's problem. I have not seen a cardiac echo to clearly define the mitral valve anatomy, but I suspect there is important mitral incompetence reoperative surgery to repair this would be high risk in the setting of pulmonary hypertension. It might be reasonable to assess the patient for mitral clip placement. The patient does have serious cardiomyopathy and I suppose consideration for transplant as appropriate such a young person. In any event, I think high risk surgery for mitral valve replacement alone at this point is not particularly appealing with the resources we have available at this point. Thank you for the consult. <ELECTRONICALLY SIGNED> By: Aldo Davies MD 06/27/20 0824 42 35 Aldo Davies MD /nt
== END 2020-06-24 11:11 | disposition home or self-care (01) | DRG 286 ==
LOC: ER 14:40 → EROBS 17:21 → 2N 17:21
PROVIDERS: Emergency Medicine; Internal Medicine Cardiovascular Disease; Nurse Practitioner Adult Health; Nurse Practitioner Family; ADMIT Hospitalist; ATTEND Hospitalist
PROC: 4A023N8 Measurement of Cardiac Sampling and Pressure, Bilateral, Percutaneous Approach (ICD-10-PCS; principal; 2020-06-22)
PROC: B215YZZ Fluoroscopy of Left Heart using Other Contrast (ICD-10-PCS; principal; 2020-06-22)
PROC: B211YZZ Fluoroscopy of Multiple Coronary Arteries using Other Contrast (ICD-10-PCS; principal; 2020-06-22)
DX: I13.0 Hypertensive heart and chronic kidney disease with heart failure and stage 1 through stage 4 chronic kidney disease, or unspecified chronic kidney disease (principal); R65.11 Systemic inflammatory response syndrome (SIRS) of non-infectious origin with acute organ dysfunction; I50.43 Acute on chronic combined systolic (congestive) and diastolic (congestive) heart failure; I25.110 Atherosclerotic heart disease of native coronary artery with unstable angina pectoris; I16.0 Hypertensive urgency; E87.6 Hypokalemia; G89.29 Other chronic pain; E78.5 Hyperlipidemia, unspecified; E66.9 Obesity, unspecified; E11.65 Type 2 diabetes mellitus with hyperglycemia; M54.9 Dorsalgia, unspecified; I48.0 Paroxysmal atrial fibrillation; I25.5 Ischemic cardiomyopathy; I34.0 Nonrheumatic mitral (valve) insufficiency; N18.30 Chronic kidney disease, stage 3 unspecified; E11.22 Type 2 diabetes mellitus with diabetic chronic kidney disease; I27.20 Pulmonary hypertension, unspecified; Z90.710 Acquired absence of both cervix and uterus; Z95.1 Presence of aortocoronary bypass graft; Z87.891 Personal history of nicotine dependence; Z68.35 Body mass index [BMI] 35.0-35.9, adult; Z95.810 Presence of automatic (implantable) cardiac defibrillator; Z83.3 Family history of diabetes mellitus; Z82.49 Family history of ischemic heart disease and other diseases of the circulatory system; Z79.01 Long term (current) use of anticoagulants; Z88.8 Allergy status to other drugs, medicaments and biological substances; Z79.899 Other long term (current) drug therapy
CPT/HCPCS: 10081

== ENCOUNTER → 2020-07-02 | Outpatient (CLI) | payer OTHER, BC | LOC: ULTRA 14:18 | PROVIDERS: ATTEND Nurse Practitioner | DX: M79.604 Pain in right leg (principal); M79.605 Pain in left leg; I50.40 Unspecified combined systolic (congestive) and diastolic (congestive) heart failure; I25.10 Atherosclerotic heart disease of native coronary artery without angina pectoris ==

== ENCOUNTER 2020-07-03 04:55 | Emergency (ER) | payer OTHER, BC ==
[~2020-07-03] VITALS: Ht 152.4 cm; Wt 83.9 kg
[2020-07-03 06:16] VITALS: BP 160/80
[2020-07-05] MEDS ORDERED: ELIQUIS5 MG PO (09:47)
[2020-07-05] MEDS ORDERED: COZAAR 50 MG TA50 M1 PO (09:49)
[2020-07-05] MEDS ORDERED: DEMADEX20 MG PO (09:50)
[2020-07-05] MEDS ORDERED: HYDROCODON-ACE1 EAC5 PO (10:15)
== END 2020-07-03 06:16 | disposition home or self-care (01) ==
LOC: ER 04:55
DX: G89.29 Other chronic pain (principal); M54.2 Cervicalgia; M47.892 Other spondylosis, cervical region; I48.91 Unspecified atrial fibrillation; E11.9 Type 2 diabetes mellitus without complications; I25.10 Atherosclerotic heart disease of native coronary artery without angina pectoris; I10 Essential (primary) hypertension; E78.5 Hyperlipidemia, unspecified; I25.2 Old myocardial infarction; Z79.4 Long term (current) use of insulin; Z79.899 Other long term (current) drug therapy; Z79.82 Long term (current) use of aspirin; Z87.891 Personal history of nicotine dependence; Z88.8 Allergy status to other drugs, medicaments and biological substances

== ENCOUNTER → 2020-07-05 | Outpatient (CLI) | payer OTHER, BC ==
[~2020-07-05] VITALS: Ht 152.4 cm; Wt 83.4 kg
[2020-07-05 09:40] VITALS: BP 115/66
--- NOTE | 2020-07-05 09:54 | NUR ---
Pain Clinic Assessment: 1. History of Osteoarthritis: NECK BACK History of Rheumatoid Arthritis: Not Applicable 2. Height: 5 ft. 0 in. 152.4 cm. Weight: 183.8 lb. oz. 83.371 kg. Patient's BMI: 35.9 3. Vital Signs: BP: 115/66 Pulse: 91 Resp: 14 Temp: 02 Sat: 97 ECG Mon: 4. Pain Intensity: 6 5. Fall Risk: Dizziness: N Needs help standing or walking: N Fallen in the last 3 months: N Fall risk comments: 6. Patient on Blood Thinner: ELEIQUIS 7. History of Hypertension: Y 8. Opioid Therapy greater than 6 weeks: Y Opiate Contract Signed: 01/01/20 9. Risk Assessment Tool Provided: LOW RISK 04/25 10. Functional Assessment Tool: 11. Recreational Drug Use: Never Drug Type: Tobacco Use: Former Smoker Tobacco Type: Amount or Packs/day: How Many Years: Alcohol Use: No Frequency: Quant:
== END ==
LOC: PAIN 09:20
PROVIDERS: ATTEND Clinical Nurse Specialist Adult Health
DX: G89.4 Chronic pain syndrome (principal); M54.12 Radiculopathy, cervical region; I25.5 Ischemic cardiomyopathy; I11.0 Hypertensive heart disease with heart failure; I50.9 Heart failure, unspecified; Z79.891 Long term (current) use of opiate analgesic; Z79.899 Other long term (current) drug therapy

== ENCOUNTER → 2020-07-15 | Outpatient (CLI) | payer OTHER, BC | LOC: SJCVC 13:40 | PROVIDERS: ATTEND Internal Medicine Cardiovascular Disease | DX: R94.31 Abnormal electrocardiogram [ECG] [EKG] (principal); I25.5 Ischemic cardiomyopathy; R00.0 Tachycardia, unspecified; I42.9 Cardiomyopathy, unspecified; I34.0 Nonrheumatic mitral (valve) insufficiency; I25.10 Atherosclerotic heart disease of native coronary artery without angina pectoris; I48.0 Paroxysmal atrial fibrillation; E78.00 Pure hypercholesterolemia, unspecified; R60.9 Edema, unspecified; E66.9 Obesity, unspecified; E78.5 Hyperlipidemia, unspecified; R60.0 Localized edema; E11.22 Type 2 diabetes mellitus with diabetic chronic kidney disease; I13.0 Hypertensive heart and chronic kidney disease with heart failure and stage 1 through stage 4 chronic kidney disease, or unspecified chronic kidney disease; I50.9 Heart failure, unspecified; N18.9 Chronic kidney disease, unspecified; Z87.891 Personal history of nicotine dependence; Z95.810 Presence of automatic (implantable) cardiac defibrillator; Z79.899 Other long term (current) drug therapy; Z79.4 Long term (current) use of insulin ==

== ENCOUNTER → 2020-07-29 | Outpatient (CLI) | payer OTHER, BC | LOC: SJCVC 13:25 | PROVIDERS: ATTEND Internal Medicine Cardiovascular Disease | DX: R94.31 Abnormal electrocardiogram [ECG] [EKG] (principal); E11.22 Type 2 diabetes mellitus with diabetic chronic kidney disease; I13.0 Hypertensive heart and chronic kidney disease with heart failure and stage 1 through stage 4 chronic kidney disease, or unspecified chronic kidney disease; I50.9 Heart failure, unspecified; N18.9 Chronic kidney disease, unspecified; G89.29 Other chronic pain; R60.0 Localized edema; E78.5 Hyperlipidemia, unspecified; I34.0 Nonrheumatic mitral (valve) insufficiency; I42.9 Cardiomyopathy, unspecified; I25.10 Atherosclerotic heart disease of native coronary artery without angina pectoris; I48.0 Paroxysmal atrial fibrillation; E78.00 Pure hypercholesterolemia, unspecified; Z95.810 Presence of automatic (implantable) cardiac defibrillator; Z79.899 Other long term (current) drug therapy; Z79.82 Long term (current) use of aspirin; Z87.891 Personal history of nicotine dependence ==

== ENCOUNTER → 2020-08-13 | Outpatient (CLI) | payer OTHER, BC ==
[~2020-08-13] MED LIST changes: -HUMULIN R100 UNIT/1 SUBQ; +NITROSTAT0.4 M1 SUBLING; +NOVOLOG FL100 UNIT/M SUBQ; +PLAVIX 75 MG TA75 MG PO; +PROTONIX40 M2 PO; +TOPROL XL25 MG PO
== END ==
LOC: SJCVC 10:25
PROVIDERS: ATTEND Internal Medicine Cardiovascular Disease
DX: I13.0 Hypertensive heart and chronic kidney disease with heart failure and stage 1 through stage 4 chronic kidney disease, or unspecified chronic kidney disease (principal); I50.9 Heart failure, unspecified; N28.9 Disorder of kidney and ureter, unspecified; E11.22 Type 2 diabetes mellitus with diabetic chronic kidney disease; I25.10 Atherosclerotic heart disease of native coronary artery without angina pectoris; E78.5 Hyperlipidemia, unspecified; E66.9 Obesity, unspecified; I48.0 Paroxysmal atrial fibrillation; Z90.710 Acquired absence of both cervix and uterus; Z79.82 Long term (current) use of aspirin; Z79.4 Long term (current) use of insulin; Z79.899 Other long term (current) drug therapy; Z87.891 Personal history of nicotine dependence

== ENCOUNTER 2020-08-15 13:51 | Inpatient (IN) | payer OTHER, BC ==
[~2020-08-15] VITALS: Ht 162.6 cm; Wt 86.2 kg
[~2020-08-15 13:51] MED LIST changes: -NITROSTAT0.4 M1 SUBLING; -PLAVIX 75 MG TA75 MG PO; -PROTONIX40 M2 PO; -TOPROL XL25 MG PO
[2020-08-15 13:55] VITALS: BP 133/84
[2020-08-15 14:45] LABS: ABSOLUTE NEUTROPHILS 12.3 thou/uL (1.4-8.2); BASOPHILS 0.7 % (0.0-2.0); EOSINOPHILS 0.3 % (0.0-3.0); HEMATOCRIT 43.6 % (37.0-47.0); HEMOGLOBIN 15.2 gm/dL (12.0-15.0); LYMPHOCYTES 6.7 % (24.0-44.0); MCH 30.6 pg (26.0-34.0); MCHC 34.9 g/dL (28.0-37.0); MCV 87.8 fL (80.0-100.0); MONOCYTES 6.8 % (1.0-8.0); PLATELET COUNT 303 thou/uL (150-400); POLYS 85.5 % (36.0-66.0); RBC 4.97 mil/uL (4.20-5.00); RDW 16.4 % (10.5-14.5); WBC 14.4 thou/uL (4.0-11.0)
[2020-08-15 14:54] LABS: CALCIUM 10.2 mg/dL (8.5-10.1); CREATININE 1.4 mg/dL (0.6-1.0); POTASSIUM 3.9 mmol/L (3.5-5.1)
[2020-08-15 15:02] LABS: TOTAL BILIRUBIN 0.9 mg/dL (0.2-1.0); TOTAL PROTEIN 8.6 g/dL (6.4-8.2); TROPONIN-I 0.17 ng/mL (<0.06)
[2020-08-15 15:20] LABS: URINE BILIRUBIN NEGATIVE (Negative); URINE BLOOD NEGATIVE (Negative); URINE CLARITY CLEAR; URINE COLOR YELLOW; URINE GLUCOSE-RANDOM* TRACE (Negative); URINE KETONES NEGATIVE (Negative); URINE LEUKOCYTES-REFLEX NEGATIVE (Negative); URINE NITRITE-REFLEX NEGATIVE (Negative); URINE PROTEIN (DIPSTICK) NEGATIVE (Negative); URINE UROBILINOGEN 0.2 E.U./dl (0.2-1.0)
[2020-08-15 17:56] VITALS: BP 107/71
[2020-08-15 19:14] VITALS: BP 120/73
[2020-08-15 19:30] VITALS: BP 120/75
[2020-08-15] MEDS ORDERED: PLAVIX 75 MG TA75 MG PO (22:21)
[2020-08-15] MEDS ORDERED: TOPROL XL25 MG PO (22:26)
[2020-08-15] MEDS ORDERED: NITROSTAT0.4 M1 SUBLING (22:30)
[2020-08-15] MEDS ORDERED: PROTONIX40 M2 PO (22:32)
--- NOTE | 2020-08-16 02:04 | NUR ---
RECEIVED REPORT FROM ANTHONY GILL RN.PATIENT ARRIVED TO ROOM 211 AROUND 1930.RADIOLOGY CALLED FOR X-RAY THEN LATER ULTRASOUND OF THE ABDOMEN;BOTH ARE COMPLETED.PATIENT A/O X 4.COMPLAIN OF NECK AND SPINE PAIN DUE TO ARTHRITIS. PAIN MED GIVEN.DENIES SOB.PATIENT ON ROOM AIR.MONITOR SHOWS SR.POC CONTINUED.
[2020-08-16 03:45] VITALS: BP 115/69
[2020-08-16 04:52] LABS: ABSOLUTE NEUTROPHILS 8.1 thou/uL (1.4-8.2); BASOPHILS 0.7 % (0.0-2.0); EOSINOPHILS 0.7 % (0.0-3.0); HEMATOCRIT 40.9 % (37.0-47.0); HEMOGLOBIN 14.1 gm/dL (12.0-15.0); LYMPHOCYTES 13.1 % (24.0-44.0); MCH 30.3 pg (26.0-34.0); MCHC 34.4 g/dL (28.0-37.0); MCV 88.2 fL (80.0-100.0); MONOCYTES 8.4 % (1.0-8.0); PLATELET COUNT 272 thou/uL (150-400); POLYS 77.1 % (36.0-66.0); RBC 4.64 mil/uL (4.20-5.00); RDW 16.2 % (10.5-14.5); WBC 10.6 thou/uL (4.0-11.0)
[2020-08-16 05:11] LABS: ALBUMIN 3.8 g/dL (3.4-5.0); CALCIUM 9.5 mg/dL (8.5-10.1); MAGNESIUM 1.9 mg/dL (1.8-2.4); PHOSPHORUS 5.3 mg/dL (2.5-4.9); POTASSIUM 3.3 mmol/L (3.5-5.1); TOTAL BILIRUBIN 1.1 mg/dL (0.2-1.0); TOTAL PROTEIN 7.2 g/dL (6.4-8.2)
--- NOTE | 2020-08-16 07:02 | EKG ---
[address] [address] ELECTROCARDIOGRAM REPORT Name: JUAN GRANT Room #: 211-P ADM IN M.R.#: [id number] Admission: 08/15/20 Attend Phys: Ann Vigil MD Discharge: Date of : 70 Report #: [id number] [facility] ED Test Date: 2020-08-15 Test Time: 14:06:03 Pat Name: JUAN GRANT Department: Room: 211 Gender: F Manager Of Finance: DANN : 1970 Requested By: Nakia Umaña Order Number: [id number] MD: Mik Ramos Measurements Intervals [place] Rate: 98 P: 43 [place]: 131 QRS: 27 QRSD: 121 T: -90 QT: 429 QTc: 548 Interpretive Statements Sinus rhythm LVH with secondary repolarization abnormality Prolonged QT interval Baseline wander in lead(s) V6 Compared to ECG 06/19/2020 14:47:17 Left ventricular hypertrophy now present Early repolarization now present Prolonged QT interval now present Sinus tachycardia no longer present Intraventricular conduction delay no longer present ST (T wave) deviation no longer present Electronically Signed On 08-16-2020 7:02:29 CDT by Mik Ramos [email or web address] <ELECTRONICALLY SIGNED> By: Mik Ramos MD, [facility] 08/16/20 0702 140 140 Mik Ramos MD, [facility] /EPI
[2020-08-16 07:28] VITALS: BP 98/55
[2020-08-16 07:59] VITALS: BP 113/62
[2020-08-16 11:36] VITALS: BP 110/65
[2020-08-16 15:51] VITALS: BP 132/59
--- NOTE | 2020-08-16 19:30 | NUR ---
RECEIVED PT'S CARE AROUND 0725; PT. ALERT; SR ON THE MONITOR; DURING AM ASSESSMENT PT. AOX4; C/O PAIN OVER NECK; 10/30; PRN PAIN MEDICATION NOT DUE; ST. NOT ALTERNATIVE INTERVENTION HELPED TO DECREASE PAIN; AM MEDICATIONS GIVEN; PER EBONY STEPHENS HOLD ASPIRIN; CREATININE 2.0; DR. MOREAU NOTIFIED DURING ROUNDING; HOLD DIURETICS PER DR. MOREAU; PT. NOTIFIED; ST. UNDERSTANDING; REFUSED NASAL LOTION; REQUESTED TO BE A DNR; PHYSICIAN NOTIFIED; NO NEW ORDERS; REQUESTED TO CHANGE PO POTASSIUM PILLS TO POWER; POTASSIUN POWDER GIVEN; C/O NAUSEA; REFUSED PRN MEDICATION; NOTICED PT. TAKEN ROSUVASTATIN ON REGULAR BASIS AND EMAR ORDERED ARTOVASTIN; EBONY STEPHENS NOTIFIED; OK TO GIVE ARTOVASTATIN IF PT. AGREED; PT. NOTIFIED; REFUSED IT; ASSESSMENT CHARGED; FOLLOWING POC; PASSED ON REPORT;
[2020-08-16 20:15] VITALS: BP 120/57
--- NOTE | 2020-08-17 03:08 | NUR ---
PAIN WELL CONTROLLED.DENIES NEEDS AT THIS TIME.MONITOR SHOWS SR.POC CONTINUED.
[2020-08-17 04:45] VITALS: BP 120/70
[2020-08-17 07:45] VITALS: BP 121/59
[2020-08-17 09:29] LABS: CALCIUM 9.2 mg/dL (8.5-10.1); CREATININE 1.5 mg/dL (0.6-1.0); POTASSIUM 3.5 mmol/L (3.5-5.1)
[2020-08-17 10:58] VITALS: BP 113/56
[2020-08-17 11:11] VITALS: BP 113/56
[2020-08-17 12:42] VITALS: BP 113/56
== END 2020-08-17 13:30 | disposition home or self-care (01) | DRG 280 ==
LOC: ER 13:51 → EROBS 17:03 → 2N 17:03
PROVIDERS: Nurse Practitioner; Nurse Practitioner Family; ADMIT Internal Medicine; ATTEND Internal Medicine
DX: I21.4 Non-ST elevation (NSTEMI) myocardial infarction (principal); I50.23 Acute on chronic systolic (congestive) heart failure; R65.11 Systemic inflammatory response syndrome (SIRS) of non-infectious origin with acute organ dysfunction; N17.9 Acute kidney failure, unspecified; I42.9 Cardiomyopathy, unspecified; I13.0 Hypertensive heart and chronic kidney disease with heart failure and stage 1 through stage 4 chronic kidney disease, or unspecified chronic kidney disease; R77.8 Other specified abnormalities of plasma proteins; I25.10 Atherosclerotic heart disease of native coronary artery without angina pectoris; I34.0 Nonrheumatic mitral (valve) insufficiency; G89.29 Other chronic pain; I48.91 Unspecified atrial fibrillation; E78.5 Hyperlipidemia, unspecified; F32.9 Major depressive disorder, single episode, unspecified; D72.829 Elevated white blood cell count, unspecified; N18.30 Chronic kidney disease, stage 3 unspecified; E53.8 Deficiency of other specified B group vitamins; E55.9 Vitamin D deficiency, unspecified; E87.6 Hypokalemia; I48.0 Paroxysmal atrial fibrillation; I25.5 Ischemic cardiomyopathy; E11.65 Type 2 diabetes mellitus with hyperglycemia; Z66 Do not resuscitate; Z85.828 Personal history of other malignant neoplasm of skin; I25.2 Old myocardial infarction; Z79.4 Long term (current) use of insulin; Z79.82 Long term (current) use of aspirin; Z79.899 Other long term (current) drug therapy; Z88.8 Allergy status to other drugs, medicaments and biological substances; Z95.1 Presence of aortocoronary bypass graft; Z86.16 Personal history of COVID-19; Z87.891 Personal history of nicotine dependence
CPT/HCPCS: 10081

== ENCOUNTER 2020-08-24 17:13 | Emergency (ER) | payer OTHER, BC ==
[~2020-08-24] VITALS: Ht 165.1 cm; Wt 79.4 kg
[~2020-08-24 17:13] MED LIST changes: +NITROSTAT0.4 M1 SUBLING; +PLAVIX 75 MG TA75 MG PO; +PROTONIX40 M2 PO; +TOPROL XL25 MG PO
[2020-08-24 17:26] VITALS: BP 180/84
[2020-08-26] MEDS ORDERED: CYMBALTA30 MG PO (10:03)
[2020-08-26] MEDS ORDERED: HYDROCODON-ACE1 EAC5 PO (10:07)
== END 2020-08-24 18:15 | disposition home or self-care (01) ==
LOC: ER 17:13
DX: M19.90 Unspecified osteoarthritis, unspecified site (principal); M54.2 Cervicalgia; I11.0 Hypertensive heart disease with heart failure; I50.9 Heart failure, unspecified; I25.10 Atherosclerotic heart disease of native coronary artery without angina pectoris; E11.9 Type 2 diabetes mellitus without complications; E78.5 Hyperlipidemia, unspecified; Z95.1 Presence of aortocoronary bypass graft; Z79.82 Long term (current) use of aspirin; Z79.01 Long term (current) use of anticoagulants; Z79.899 Other long term (current) drug therapy; Z79.4 Long term (current) use of insulin; Z87.891 Personal history of nicotine dependence; Z88.8 Allergy status to other drugs, medicaments and biological substances

== ENCOUNTER 2020-08-26 18:38 | Emergency (ER) | payer OTHER, BC ==
[~2020-08-26] VITALS: Ht 152.4 cm; Wt 87.1 kg
[2020-08-26 19:43] VITALS: BP 197/84
== END 2020-08-26 19:44 | disposition home or self-care (01) ==
LOC: ER 18:38
DX: G89.29 Other chronic pain (principal); Z76.0 Encounter for issue of repeat prescription; E78.5 Hyperlipidemia, unspecified; E11.9 Type 2 diabetes mellitus without complications; I11.0 Hypertensive heart disease with heart failure; I50.9 Heart failure, unspecified; Z87.891 Personal history of nicotine dependence; Z88.5 Allergy status to narcotic agent; Z79.899 Other long term (current) drug therapy; Z79.82 Long term (current) use of aspirin; Z95.1 Presence of aortocoronary bypass graft

== ENCOUNTER → 2020-08-26 | Outpatient (CLI) | payer OTHER, BC ==
[~2020-08-26] VITALS: Ht 152.4 cm; Wt 88.4 kg
[~2020-08-26] MED LIST changes: +CYMBALTA30 MG PO
[2020-08-26 09:29] VITALS: BP 153/78
--- NOTE | 2020-08-26 09:31 | NUR ---
Pain Clinic Assessment: 1. History of Osteoarthritis: NECK BACK History of Rheumatoid Arthritis: Not Applicable 2. Height: 5 ft. 0 in. 152.4 cm. Weight: 194.8 lb. oz. 88.361 kg. Patient's BMI: 38.0 3. Vital Signs: BP: 153/78 Pulse: 98 Resp: 16 Temp: 02 Sat: 95 ECG Mon: 4. Pain Intensity: 8 5. Fall Risk: Dizziness: N Needs help standing or walking: N Fallen in the last 3 months: N Fall risk comments: 6. Patient on Blood Thinner: ELIQUIS 7. History of Hypertension: Y 8. Opioid Therapy greater than 6 weeks: Y Opiate Contract Signed: 01/01/20 9. Risk Assessment Tool Provided: LOW RISK 04/25 10. Functional Assessment Tool: 11. Recreational Drug Use: Never Drug Type: Tobacco Use: Former Smoker Tobacco Type: Amount or Packs/day: How Many Years: Alcohol Use: Past use Frequency: Quant:
== END ==
LOC: PAIN 07:56
PROVIDERS: ATTEND Clinical Nurse Specialist Adult Health
DX: M54.16 Radiculopathy, lumbar region (principal); M54.12 Radiculopathy, cervical region; F32.9 Major depressive disorder, single episode, unspecified; G89.4 Chronic pain syndrome; F79 Unspecified intellectual disabilities; I51.7 Cardiomegaly; F11.20 Opioid dependence, uncomplicated; Z87.891 Personal history of nicotine dependence; Z88.8 Allergy status to other drugs, medicaments and biological substances; Z79.899 Other long term (current) drug therapy

== ENCOUNTER 2020-09-07 13:50 | Inpatient (IN) | payer OTHER, BC ==
[~2020-09-07] VITALS: Ht 152.4 cm; Wt 86.2 kg
[2020-09-07 14:03] VITALS: BP 178/77
[2020-09-07] MEDS ORDERED: METOLAZONE 2.52.5 M1 PO (14:38)
[2020-09-07] MEDS ORDERED: SPIRONOLACTONE25 MG PO (14:39)
[2020-09-07 15:25] LABS: ABSOLUTE NEUTROPHILS 6.6 thou/uL (1.4-8.2); BASOPHILS 0.9 % (0.0-2.0); EOSINOPHILS 0.4 % (0.0-3.0); HEMOGLOBIN 12.4 gm/dL (12.0-15.0); LYMPHOCYTES 7.9 % (24.0-44.0); MCH 30.6 pg (26.0-34.0); MCHC 34.3 g/dL (28.0-37.0); MCV 89.3 fL (80.0-100.0); MONOCYTES 5.5 % (1.0-8.0); PLATELET COUNT 167 thou/uL (150-400); POLYS 85.3 % (36.0-66.0); RBC 4.03 mil/uL (4.20-5.00); RDW 15.7 % (10.5-14.5); WBC 7.7 thou/uL (4.0-11.0)
[2020-09-07 15:33] LABS: CALCIUM 8.7 mg/dL (8.5-10.1)
[2020-09-07 15:43] LABS: ALBUMIN 3.7 g/dL (3.4-5.0); TOTAL BILIRUBIN 0.5 mg/dL (0.2-1.0); TOTAL PROTEIN 7.4 g/dL (6.4-8.2); TROPONIN-I 0.21 ng/mL (<0.06)
[2020-09-07 17:07] VITALS: BP 158/65
[2020-09-07 17:20] VITALS: BP 161/64
--- NOTE | 2020-09-07 19:07 | NUR ---
pt to the unit from the ed. assessment as charted - pt oriented to room and bedspace. sheree diet and fluids. no co's at the present time. see admiddion documentation.
[2020-09-07 20:15] VITALS: BP 129/59
[2020-09-08 00:15] VITALS: BP 145/81
[2020-09-08 04:45] VITALS: BP 130/63
[2020-09-08 05:11] LABS: HEMATOCRIT 34.2 % (37.0-47.0); HEMOGLOBIN 11.6 gm/dL (12.0-15.0); MCH 30.6 pg (26.0-34.0); MCHC 33.9 g/dL (28.0-37.0); MCV 90.2 fL (80.0-100.0); RBC 3.79 mil/uL (4.20-5.00); RDW 15.7 % (10.5-14.5); WBC 5.3 thou/uL (4.0-11.0)
--- NOTE | 2020-09-08 05:37 | NUR ---
ASSUME CARE 1900. PT/VITALS STABKLE. DENIES ANY CHEST PAIN BUT INTERMIITENT NECK PAIN. HYDROCODONE FOR RELIEF. GOOD ENDURANCE TO ACTIVITY. ASSESSMENT CHARTED. PROGRESSING WELL WITH POC. PLAN IS TO MONITOR TROPONIN LEVELS, CONSULT CARDIOLOGY AND MANAGE BLOOD SUGAR LEVELS. SR ON MONITOR. NO DISTRESS NOTED THROUGH THE NIGHT. WLL CONTINUE TO MONITOR AND FOLLOW WITH POC
[2020-09-08 05:56] LABS: CALCIUM 8.6 mg/dL (8.5-10.1); CREATININE 1.1 mg/dL (0.6-1.0); POTASSIUM 3.2 mmol/L (3.5-5.1); TROPONIN-I 0.11 ng/mL (<0.06)
[2020-09-08 08:04] VITALS: BP 146/71
--- NOTE | 2020-09-08 08:42 | EKG ---
[address] [address] ELECTROCARDIOGRAM REPORT Name: LAVERNE GRANTJORIE FRANSISCO Room #: 218-P ADM IN M.R.#: [id number] Admission: 09/07/20 Attend Phys: Tre Meyers MD Discharge: Date of : 70 Report #: [id number] [facility] ED Test Date: 2020-09-07 Test Time: 14:17:10 Pat Name: JUAN GRANT Department: Room: 218 P Gender: F Shutdown Coordinator: Fito DIALLO : 1970 Requested By: Trevor Camp Order Number: [id number] MD: Mik Ramos Measurements Intervals [place] Rate: 92 P: 80 IN: 185 QRS: 49 QRSD: 124 T: 236 QT: 378 QTc: 468 Interpretive Statements Sinus rhythm Nonspecific intraventricular conduction delay Nonspecific repol abnormality, diffuse leads Baseline wander in lead(s) II,aVF,V1,V2,V3,V6 Compared to ECG 08/15/2020 14:06:03 Intraventricular conduction delay now present Left ventricular hypertrophy no longer present Prolonged QT interval no longer present Electronically Signed On 09-08-2020 8:42:02 CDT by Mik Ramos [email or web address] <ELECTRONICALLY SIGNED> By: Mik Ramos MD, FAC 09/08/20 0842 141 141 Mik Ramos MD, [facility] /EPI
--- NOTE | 2020-09-08 08:42 | EKG ---
[address] [place] [address] ELECTROCARDIOGRAM REPORT Name: LAVERNE GRANTJORIE FRANSISCO Room #: 218-P ADM IN M.R.#: [id number] Admission: 09/07/20 Attend Phys: Tre Meyers MD Discharge: Date of : 70 Report #: [id number] [facility] ED Test Date: 2020-09-07 Test Time: 14:18:54 Pat Name: JUAN GRANT Department: Room: 218 Gender: F Umbrella Tipper Machine: Fito DIALLO : 1970 Requested By: Trevor Camp Order Number: [id number] MD: Mik Ramos Measurements Intervals [place] Rate: 94 P: 79 [place]: 183 QRS: 48 QRSD: 122 T: 261 QT: 447 QTc: 560 Interpretive Statements Sinus rhythm IVCD, consider atypical LBBB Baseline wander in lead(s) II,III,aVF,V1,V2,V6 Compared to ECG 08/15/2020 14:06:03 Left ventricular hypertrophy no longer present Early repolarization no longer present Prolonged QT interval no longer present Electronically Signed On 09-08-2020 8:42:05 CDT by Mik Ramos [email or web address] <ELECTRONICALLY SIGNED> By: Mik Ramos MD, [facility] 09/08/20 0842 [id number] [id number] Mik Ramos MD, FAC /EPI
[2020-09-08 11:12] VITALS: BP 150/68
--- NOTE | 2020-09-08 14:22 | NUR ---
Chart reviewed and case discussed with the care team. Pt known to cm from recent admission in June for cardiac cath/stent. She has f/u planned at [facility]. She is disabled and has health insurance coverage inplace for f/u care and scripts. She is indep with gait and adl's. She lives with her spouse who is supportive. No cm interventions indicated at this time. Will follow along should dc needs arise.
[2020-09-08 16:11] VITALS: BP 138/79
--- NOTE | 2020-09-08 16:58 | NUR ---
ASSESSMENT CHARTED - MEDS PER JUN - GIVEN HYDROCODONE X 1 DOSE FOR CO'S OF PAIN IN NECK WITH MODERATE EFFECT. JANE DIET AND FLUIDS. ACCUCHECKS CHARTED AND COVERED PER SSI PRN. PT WITH K+ THIS AM - REPLACED ORDERED. UP AD LAYLA IN ROOM. NO CO'S OF NAUSEA. STATES COMFORTABLE AT THE PRESENT TIME WITH NO CO'S
[2020-09-08 19:51] VITALS: BP 117/63
[2020-09-09 05:04] VITALS: BP 126/77
[2020-09-09 05:13] LABS: HEMATOCRIT 35.4 % (37.0-47.0); HEMOGLOBIN 12.2 gm/dL (12.0-15.0); MCH 31.2 pg (26.0-34.0); MCHC 34.6 g/dL (28.0-37.0); MCV 90.3 fL (80.0-100.0); RBC 3.91 mil/uL (4.20-5.00); WBC 5.8 thou/uL (4.0-11.0)
[2020-09-09 05:19] LABS: CALCIUM 8.6 mg/dL (8.5-10.1); POTASSIUM 3.1 mmol/L (3.5-5.1)
--- NOTE | 2020-09-09 06:04 | NUR ---
ASSUME CARE 1900. PT/VITALS STABLE. INTERMITTENT NECK PAIN FROM ARTHRITIS WITH MODERATE RELIEF FROM HYDROCODONE. GOOD ENDURANCE TO ACTIVITY. PT IS INDEPENDENT. ASSESSMENT S CHARTED. PROGRESSING WELL WITH POC. NO DISTRESS NOTED THROUGH THE SHIFT. SR ON MONITOR. NO CHEST PAIN INDICATED. PLAN IS POSSIBLE DISCHARGE TODAY. WILL CONTINUE TO FOLLOW WITH POC
[2020-09-09 07:50] VITALS: BP 123/62
[2020-09-09 11:55] VITALS: BP 132/77
[2020-09-09 15:45] VITALS: BP 124/60
--- NOTE | 2020-09-09 18:43 | NUR ---
PATIENT OF NEW ONSET OF CHEST PAIN THIS AM STATING SHE HAD DIFFICULTY CURTAILING THE PAIN IN ANY POSITION. DR TAYLOR CALLED AND NEW ORDES FOR EKG AND ALSO TROPONIN ALL OF WHICH IMPROVING CARDIAC STATUS. SHE WILL MOST LIKELY BE DISCHARGED TOMORROW. SHE STATES SHE DOES NOT HAVE ANY PAIN AT THE MOMENT. WILL CONT WITH PLAN OF CARE.
[2020-09-09 20:49] VITALS: BP 126/60
[2020-09-10 04:52] VITALS: BP 153/84
--- NOTE | 2020-09-10 06:53 | NUR ---
RECEIVED CARE OF THIS PATIENT AT 1900. PATIENT ALERT AND ORIENTED X4. ACCUCHECK 75. NO COVERAGE NEEDED. C/O PAIN IN NECK BUT DENIES CP. MED GIVEN. SLEPT MOST OF NIGHT.
[2020-09-10 08:10] VITALS: BP 147/81
--- NOTE | 2020-09-10 08:20 | EKG ---
Formerly [facility] [place] [address] ELECTROCARDIOGRAM REPORT Name: LAVERNE GRANTJACINTO MOODY Room #: 218-P ADM IN M.R.#: [id number] Admission: 09/07/20 Attend Phys: Tre Meyers MD Discharge: Date of : 70 Report #: [id number] [facility] Test Date: 2020-09-09 Test Time: 13:02:43 Pat Name: JUAN GRANT Department: Room: 218 P Gender: F Aligning Inspector: ASIA : 1970 Requested By: Darnell Cartagena Order Number: [id number] MD: Mik Ramos Measurements Intervals [place] Rate: 76 P: 45 [place]: 169 QRS: 40 QRSD: 122 T: 209 QT: 420 QTc: 473 Interpretive Statements Sinus rhythm LVH with secondary repolarization abnormality Compared to ECG 09/07/2020 14:18:54 Left ventricular hypertrophy now present Early repolarization now present Electronically Signed On 09-10-2020 8:19:45 CDT by Mik Ramos [email or web address] <ELECTRONICALLY SIGNED> By: Mik Ramos MD, [facility] 09/10/20818 130 1302 Mik Ramos MD, FAC /EPI
[2020-09-10] MEDS ORDERED: IMDUR 30 MG TAB30 M1 PO (08:43)
[2020-09-10] MEDS ORDERED: METOPROLOL SUCC50 MG PO (08:43)
[2020-09-10 11:53] VITALS: BP 147/81
[2020-09-23] MEDS ORDERED: MIRTAZAPINE7.5 MG PO (10:28)
[2020-09-23] MEDS ORDERED: HYDROCODON-ACE1 EAC5 PO (10:39)
== END 2020-09-10 14:42 | disposition home or self-care (01) | DRG 309 ==
LOC: ER 13:50 → 2N 17:10 → EROBS 17:10 → 2N 18:12
PROVIDERS: Emergency Medicine; ADMIT Hospitalist; ATTEND Hospitalist
PROC: 4B02XSZ Measurement of Cardiac Pacemaker, External Approach (ICD-10-PCS; principal; 2020-09-08)
DX: I48.0 Paroxysmal atrial fibrillation (principal); I24.8 Other forms of acute ischemic heart disease; I50.22 Chronic systolic (congestive) heart failure; I25.10 Atherosclerotic heart disease of native coronary artery without angina pectoris; I47.1 Supraventricular tachycardia; R77.8 Other specified abnormalities of plasma proteins; M54.89 Other dorsalgia; M54.2 Cervicalgia; G89.29 Other chronic pain; E11.9 Type 2 diabetes mellitus without complications; I25.5 Ischemic cardiomyopathy; E78.5 Hyperlipidemia, unspecified; E87.6 Hypokalemia; I34.0 Nonrheumatic mitral (valve) insufficiency; I11.0 Hypertensive heart disease with heart failure; Z88.8 Allergy status to other drugs, medicaments and biological substances; Z95.1 Presence of aortocoronary bypass graft; Z87.891 Personal history of nicotine dependence
CPT/HCPCS: 10081

== ENCOUNTER 2020-09-15 18:00 | Emergency (ER) | payer OTHER, BC ==
[~2020-09-15] VITALS: Ht 152.4 cm; Wt 86.2 kg
[~2020-09-15 18:00] MED LIST changes: +IMDUR 30 MG TAB30 M1 PO; +METOLAZONE 2.52.5 M1 PO; +METOPROLOL SUCC50 MG PO; +SPIRONOLACTONE25 MG PO
[2020-09-15 18:35] LABS: ABSOLUTE NEUTROPHILS 5.9 thou/uL (1.4-8.2); BASOPHILS 0.7 % (0.0-2.0); EOSINOPHILS 0.8 % (0.0-3.0); HEMATOCRIT 39.3 % (37.0-47.0); HEMOGLOBIN 13.2 gm/dL (12.0-15.0); MCH 30.6 pg (26.0-34.0); MCHC 33.6 g/dL (28.0-37.0); MCV 91.1 fL (80.0-100.0); MONOCYTES 6.9 % (1.0-8.0); PLATELET COUNT 240 thou/uL (150-400); POLYS 79.6 % (36.0-66.0); RBC 4.31 mil/uL (4.20-5.00); RDW 15.9 % (10.5-14.5); WBC 7.4 thou/uL (4.0-11.0)
[2020-09-15 18:38] LABS: ANION GAP 4 mmol/L (7-16); BUN 14 mg/dL (7-18); CALCIUM 9.2 mg/dL (8.5-10.1); CHLORIDE 102 mmol/L (98-107); CO2 33 mmol/L (21-32); CREATININE 1.2 mg/dL (0.6-1.0); GLUCOSE 130 mg/dL (74-106); SODIUM 139 mmol/L (136-145)
[2020-09-15 18:48] LABS: ALBUMIN 4.1 g/dL (3.4-5.0); DIRECT BILIRUBIN 0.1 mg/dL (<0.1-0.2); SGOT 21 U/L (15-37); SGPT 23 U/L (14-59); TOTAL BILIRUBIN 0.7 mg/dL (0.2-1.0); TOTAL PROTEIN 8.2 g/dL (6.4-8.2); TROPONIN-I <0.06 ng/mL (<0.06)
[2020-09-15 21:15] VITALS: BP 132/55
--- NOTE | 2020-09-16 06:55 | EKG ---
[address] [address] ELECTROCARDIOGRAM REPORT Name: WATSONPEYTONJUANJACINTO MOODY Room #: DEP [facility]#: [id number] Admission: 09/15/20 Attend Phys: Discharge: 09/15/20 Date of : 70 Report #: [id number] [facility] ED Test Date: 2020-09-15 Test Time: 18:47:49 Pat Name: JUAN GRANT Department: Room: Gender: F Parts Identification Technician: mpark : 1970 Requested By: Vanessa Bernstein Order Number: [id number] MD: Mik Ramos Measurements Intervals [place] Rate: 79 P: 34 OR: 147 QRS: 41 QRSD: 121 T: -57 QT: 422 QTc: 484 Interpretive Statements Sinus rhythm Nonspecific intraventricular conduction delay Borderline T abnormalities, inferior leads Compared to ECG 09/09/2020 13:02:43 Intraventricular conduction delay now present T-wave abnormality now present Left ventricular hypertrophy no longer present Early repolarization no longer present Electronically Signed On 09-16-2020 6:55:21 CDT by Mik Ramos [email or web address] <ELECTRONICALLY SIGNED> By: Mik Ramos MD, FAC 09/16/20 0655 184 46 Mik Ramos MD, [facility] /EPI
[2020-09-23] MEDS ORDERED: MIRTAZAPINE7.5 MG PO (10:28)
[2020-09-23] MEDS ORDERED: HYDROCODON-ACE1 EAC5 PO (10:39)
== END 2020-09-15 21:15 | disposition home or self-care (01) ==
LOC: ER 18:00
PROVIDERS: Emergency Medicine
DX: R06.02 Shortness of breath (principal); R07.89 Other chest pain; I11.0 Hypertensive heart disease with heart failure; I50.9 Heart failure, unspecified; E78.5 Hyperlipidemia, unspecified; E11.9 Type 2 diabetes mellitus without complications; F17.210 Nicotine dependence, cigarettes, uncomplicated; Z98.61 Coronary angioplasty status; Z95.1 Presence of aortocoronary bypass graft; Z88.8 Allergy status to other drugs, medicaments and biological substances

== ENCOUNTER → 2020-09-17 | Outpatient (CLI) | payer OTHER, BC ==
[~2020-09-17] MED LIST changes: +MIRTAZAPINE7.5 MG PO
== END ==
LOC: SJCVC 09:09
PROVIDERS: ATTEND Internal Medicine Cardiovascular Disease
DX: R94.31 Abnormal electrocardiogram [ECG] [EKG] (principal); I25.10 Atherosclerotic heart disease of native coronary artery without angina pectoris; I42.9 Cardiomyopathy, unspecified; I34.0 Nonrheumatic mitral (valve) insufficiency; I10 Essential (primary) hypertension; E78.00 Pure hypercholesterolemia, unspecified; E11.22 Type 2 diabetes mellitus with diabetic chronic kidney disease; I13.0 Hypertensive heart and chronic kidney disease with heart failure and stage 1 through stage 4 chronic kidney disease, or unspecified chronic kidney disease; I50.9 Heart failure, unspecified; N18.9 Chronic kidney disease, unspecified; R60.0 Localized edema; E66.9 Obesity, unspecified; I48.0 Paroxysmal atrial fibrillation; Z79.899 Other long term (current) drug therapy; Z87.891 Personal history of nicotine dependence; Z95.1 Presence of aortocoronary bypass graft

== ENCOUNTER → 2020-09-23 | Outpatient (CLI) | payer OTHER, BC ==
[~2020-09-23] VITALS: Ht 152.4 cm; Wt 86.1 kg
[2020-09-23 10:03] VITALS: BP 131/69
--- NOTE | 2020-09-23 10:14 | NUR ---
Pain Clinic Assessment: 1. History of Osteoarthritis: NECK BACK History of Rheumatoid Arthritis: Not Applicable 2. Height: 5 ft. 0 in. 152.4 cm. Weight: 189.8 lb. oz. 86.093 kg. Patient's BMI: 37.1 3. Vital Signs: BP: 131/69 Pulse: 95 Resp: 16 Temp: 02 Sat: 98 ECG Mon: 4. Pain Intensity: 6 5. Fall Risk: Dizziness: N Needs help standing or walking: N Fallen in the last 3 months: N Fall risk comments: 6. Patient on Blood Thinner: ELIQUIS 7. History of Hypertension: Y 8. Opioid Therapy greater than 6 weeks: Y Opiate Contract Signed: 01/01/20 9. Risk Assessment Tool Provided: LOW RISK 04/25 10. Functional Assessment Tool: 11. Recreational Drug Use: Never Drug Type: Tobacco Use: Former Smoker Tobacco Type: Amount or Packs/day: How Many Years: Alcohol Use: Past use Frequency: Quant:
== END ==
LOC: PAIN 07:04
PROVIDERS: ATTEND Clinical Nurse Specialist Adult Health
DX: G89.29 Other chronic pain (principal); M54.12 Radiculopathy, cervical region; M54.5 Low back pain; I42.9 Cardiomyopathy, unspecified; I50.9 Heart failure, unspecified; F79 Unspecified intellectual disabilities; F32.9 Major depressive disorder, single episode, unspecified; Z88.8 Allergy status to other drugs, medicaments and biological substances; Z79.891 Long term (current) use of opiate analgesic; Z79.899 Other long term (current) drug therapy; Z87.891 Personal history of nicotine dependence

== ENCOUNTER 2020-10-11 09:38 | Inpatient (IN) | payer OTHER, BC ==
[~2020-10-11] VITALS: Ht 152.4 cm; Wt 89.4 kg
[2020-10-11 09:43] VITALS: BP 182/90
[2020-10-11] MEDS ORDERED: KLOR-CON 10 ER10 MEQ PO (10:09)
[2020-10-11] MEDS ORDERED: NOVOLOG100 UNIT/1 SUBQ (10:10)
[2020-10-11] MEDS ORDERED: TOUJEO MAX300 UNIT/1 SUBQ (10:11)
[2020-10-11] MEDS ORDERED: REPATHA SY140 MG/1 M SUBQ (10:12)
[2020-10-11] MEDS ORDERED: COREG12.5 MG PO (10:13)
[2020-10-11 10:39] LABS: ABSOLUTE NEUTROPHILS 4.8 thou/uL (1.4-8.2); BASOPHILS 0.3 % (0.0-2.0); EOSINOPHILS 0.6 % (0.0-3.0); HEMATOCRIT 32.7 % (37.0-47.0); HEMOGLOBIN 11.1 gm/dL (12.0-15.0); LYMPHOCYTES 10.3 % (24.0-44.0); MCV 91.1 fL (80.0-100.0); PLATELET COUNT 186 thou/uL (150-400); POLYS 82.8 % (36.0-66.0); RBC 3.59 mil/uL (4.20-5.00); RDW 15.9 % (10.5-14.5); WBC 5.8 thou/uL (4.0-11.0)
[2020-10-11 10:44] LABS: CALCIUM 8.8 mg/dL (8.5-10.1); POTASSIUM 3.5 mmol/L (3.5-5.1)
[2020-10-11 10:54] LABS: ALBUMIN 3.3 g/dL (3.4-5.0); TOTAL BILIRUBIN 0.7 mg/dL (0.2-1.0); TOTAL PROTEIN 6.7 g/dL (6.4-8.2)
[2020-10-11 10:57] LABS: TROPONIN-I 0.73 ng/mL (<0.06)
--- NOTE | 2020-10-11 12:21 | EKG ---
[address] [place] [address] ELECTROCARDIOGRAM REPORT Name: LAVERNE GRANTJORIE FRANSISCO Room #: 170-9 ADM IN M.R.#: [id number] Admission: 10/11/20 Attend Phys: Tre Meyers MD Discharge: Date of : 70 Report #: [id number] [facility] ED Test Date: 2020-10-11 Test Time: 09:55:28 Pat Name: JUAN GRANT Department: Room: 170 Gender: F Library Clerical Assistant: KEENAN : 1970 Requested By: Trevor Camp Order Number: [id number] MD: Mik Ramos Measurements Intervals [place] Rate: 95 P: 68 [place]: 159 QRS: 37 QRSD: 119 T: 221 QT: 366 QTc: 460 Interpretive Statements Sinus rhythm Nonspecific intraventricular conduction delay Abnormal T, consider ischemia, diffuse leads Baseline wander in lead(s) II,III,aVF Compared to ECG 09/15/2020 18:47:49 Possible ischemia now present T-wave abnormality still present Electronically Signed On 10-11-2020 12:21:13 CDT by Mik Ramos [email or web address] <ELECTRONICALLY SIGNED> By: Mik Ramos MD, [facility] 10/11/20 1221 0955 [id number] Mik Ramos MD, [facility] /EPI
[2020-10-11 12:50] VITALS: BP 111/66
[2020-10-11 13:45] VITALS: BP 110/57
[2020-10-11 14:30] VITALS: BP 124/70
--- NOTE | 2020-10-11 16:24 | NUR ---
PT TO THE UNIT FROM THE ER. ORIENTED TO ROOM AND BEDSPACE. ADMISSION HISTROY AND ASSESSMENT CHARTED - PT GIVEN HYDROCOCONE FOR CO'S OF NECK PAIN WITH NO RELIEF PT STATES SHE TAKES DOUBLE THE DOSE THAT WE HAVE ORDERED - CALLED PLACED TO DR TO CHANGE. UP AD LAYLA. NO CO'S OF NAUSEA. JANE DIET AND FLUIDS. NO CO'S AT THE PRESENT TIME.
[2020-10-11 19:44] VITALS: BP 131/70
[2020-10-12] VITALS (7 sets, daily range): BP systolic 110–136; BP diastolic 65–89
[2020-10-12 06:13] LABS: HEMATOCRIT 35.1 % (37.0-47.0); HEMOGLOBIN 11.7 gm/dL (12.0-15.0); MCH 30.9 pg (26.0-34.0); MCHC 33.3 g/dL (28.0-37.0); MCV 92.5 fL (80.0-100.0); RBC 3.79 mil/uL (4.20-5.00); RDW 16.1 % (10.5-14.5); WBC 6.4 thou/uL (4.0-11.0)
[2020-10-12 06:39] LABS: ANION GAP 10 mmol/L (7-16); BUN 17 mg/dL (7-18); CALCIUM 8.5 mg/dL (8.5-10.1); CHLORIDE 100 mmol/L (98-107); CHOLESTEROL 114 mg/dL (<200); CO2 29 mmol/L (21-32); GLUCOSE 232 mg/dL (74-106); HDL CHOLESTEROL 29 mg/dL (>40); LDL CHOLESTEROL 43 mg/dL (<100); POTASSIUM 3.3 mmol/L (3.5-5.1); SERUM ASSESSMENT Clear; SODIUM 139 mmol/L (136-145); TC:HDL 3.9 Ratio (Not establshd); TRIGLYCERIDE 214 mg/dL (<150); TROPONIN-I 0.41 ng/mL (<0.06); VLDL 43 mg/dL (<40)
--- NOTE | 2020-10-12 07:51 | NUR ---
ASSUMED PT CARE AT 1900, PT IS AWAKE, ALERT AND ORIENTEDX4, SR/BBB ON TELE, DENIES CP OR SOB, VSS, ASSESSMENTS CHARTED, VSS, MEDS GIVEN PER JUN, NO ACUTE DISTRESS NOTED, PASSED ON REPORT TO DAY NURSE
--- NOTE | 2020-10-12 13:49 | NUR ---
Assessment completed w/ pt at bedside. Pt A&Ox4 NOK/DPOA: Spouse Don [phone] Insurance: [place] & [place] JULIO CÉSAR ADL's: Indpendent cook/drive PCP: Jessica Bradley DNP Rx: [phone] [address], [place] [address] Pt lives in home w/ spouse and 12 y/o daughter. Pt lives in 1 lvl home w/ no entry steps or steps inside. DME: None HH Hx: 3 years ago, agency unknown No Hx: SNF/REHAB/LTACH/HOSPICE/DIALYSIS NO COVID VACCINE Pt need assistance w/ transportation. Primary plan for pt family to assist D/C plan: Home when medically stable
--- NOTE | 2020-10-12 16:49 | NUR ---
ASSESSMENT CHARTED - MEDS PER JUN - GIVEN HYDROCODONE FOR CO'S OF NECK PAIN WITH MOD EFFECT. ACCUCHECKS CHARTED - COVERED ORDERED. UP AD LAYLA IN ROOM - NO CO'S OF NAUSEA - JANE DIET AND FLUIDS. LASIX CHANGED TO 80 MGS IV BID - GIVEN K+ THIS AM FOR LOW k+. NO CO'S AT THE PRESENT TIME. PT HAS BEEN SLEEPING TODAY - STATES SHE DID NOT SLEEP WELL LAST NIGHT.
[2020-10-13 02:11] VITALS: BP 110/65
[2020-10-13 03:24] VITALS: BP 127/71
--- NOTE | 2020-10-13 03:43 | NUR ---
ASSUMED CARE OF PT AT 1900, ASSESSMENT COMPLETED NOTED. EKG FAXED TO [facility] FOR SURGERY ON 10/20. PAIN MANAGEMENT CONTINUED PER POC. WILL CONTINUE TO MONITOR.
[2020-10-13 05:35] VITALS: BP 127/71; BP 159/110
[2020-10-13 08:06] VITALS: BP 128/64
[2020-10-13 10:01] LABS: CALCIUM 8.5 mg/dL (8.5-10.1); CREATININE 1.3 mg/dL (0.6-1.0); POTASSIUM 3.1 mmol/L (3.5-5.1)
[2020-10-13 15:36] VITALS: BP 112/57
--- NOTE | 2020-10-13 18:21 | NUR ---
RECEIVED THE PATIENT CONSCIOUS AND ORIENTED.ON ROOM AIR BREATHING SPONTANEOUSLY.NOT IN DISTRESS.POTASSIUM REPLACEMENT GIVEN.ALL NEEDS ATTENDED.
[2020-10-13 19:56] VITALS: BP 112/62
[2020-10-14 07:51] LABS: CALCIUM 9.1 mg/dL (8.5-10.1); CREATININE 1.3 mg/dL (0.6-1.0)
[2020-10-14 11:48] VITALS: BP 132/66
--- NOTE | 2020-10-14 12:33 | NUR ---
PT IS AXOX4, PLEASANT. PT HAS HX CHRONIC PAIN; RX HYDROCODONE. VSS, AFEBRILE, SR WITH BBB ON MONITOR. CARDIOLOGY CONSULTED; DR BARBER CONSULTED. PT TO D/C TO HOME WITH FOLLOW UP AT [facility]. PT TO HAVE MITRAL VALVE REPLACEMENT. DR TAYLOR FOLLOWING. DISCHARGE EDUCATION CONDUCTED. PT COMMUNICATED UNDERSTANDING OF DISCHARGE. PT DISCHARGED HOME WITH SPOUSE VIA PERSONAL VEHICLE. NO CONCERNS AT THIS TIME.
== END 2020-10-14 12:46 | disposition home or self-care (01) | DRG 280 ==
LOC: ER 09:38 → 2N 12:14 → EROBS 12:14 → 2N 13:49
PROVIDERS: Emergency Medicine; Nurse Practitioner; ADMIT Hospitalist; ATTEND Hospitalist
DX: I21.4 Non-ST elevation (NSTEMI) myocardial infarction (principal); I50.23 Acute on chronic systolic (congestive) heart failure; I25.10 Atherosclerotic heart disease of native coronary artery without angina pectoris; I25.5 Ischemic cardiomyopathy; E78.5 Hyperlipidemia, unspecified; E11.9 Type 2 diabetes mellitus without complications; I34.0 Nonrheumatic mitral (valve) insufficiency; I27.21 Secondary pulmonary arterial hypertension; I48.0 Paroxysmal atrial fibrillation; E87.6 Hypokalemia; I11.0 Hypertensive heart disease with heart failure; Z95.1 Presence of aortocoronary bypass graft; Z88.8 Allergy status to other drugs, medicaments and biological substances; Z87.891 Personal history of nicotine dependence; Z82.49 Family history of ischemic heart disease and other diseases of the circulatory system; Z95.810 Presence of automatic (implantable) cardiac defibrillator
CPT/HCPCS: 10081